=== PATIENT | male | born 1950 | race Caucasian/White ===

== ENCOUNTER 2019-05-16 14:54 | Inpatient (IN) | payer MEDICARE, SELFPAY ==
[2019-05-16] VITALS (12 sets, daily range): BP systolic 98–112; BP diastolic 45–65; PULSE 66–84; RESP 18–35; TEMP 36.7; O2SAT 76–98; BMI 23.8
--- NOTE | 2019-05-16 14:58 | XRR_ITS ---
PROCEDURE INFORMATION: Exam: XR Chest, 1 View Exam date and time: 05/16/2019 3:25 PM Age: 68 years old Clinical indication: Shortness of breath; Chest pain; Prior surgery; Surgery type: Open heart x4; Additional info: Chest pain, SOB TECHNIQUE: Imaging protocol: XR of the chest Views: 1 view. COMPARISON: No relevant prior studies available. FINDINGS: Lungs: There is diffuse parenchymal densities seen in the right lower lobe consistent with alveolar pneumonia Pleural space: Left lower lobe pleural effusion. No pneumothorax. Heart/Mediastinum: Unremarkable. No cardiomegaly. Bones/joints: Sternotomy wires are in place. Cardiac pacemaker is present in the left chest. XR/XR chest 1V portable [id number] IMPRESSION: 1. Right lower lobe parenchymal density consistent with pneumonia 2. Left lower lobe pleural effusion 3. Sternotomy wires are in place. 4. Cardiac pacemaker in place left side
--- NOTE | 2019-05-16 15:04 | ED_ITS ---
Entered by Ron Jose, acting as scribe for Renny Ruiz DO HPI - SOB/Dyspnea General: Chief Complaint: Shortness of Breath/Dyspnea Stated Complaint: oxygen is low, heart pt Time Seen by Provider: 05/16/19 15:01 History of Present Illness: HPI Narrative: 68 yo male presents with shortness of breath. Pt has low o2 saturations and chest pain. pt states that he has been sick for 3 days. Pt has had diarrhea and vomiting for 3 days. Pt hasn't been able to keep his medications down. MD elicited complaint: shortness of breath Onset (ago): day(s) (3) Timing: constant Severity: moderate Exacerbating factors: lying flat and movement Relieving factors: oxygen Associated symptoms: Reports chest pain, cough, nausea, orthopnea and vomiting; Deny dizziness, extremity pain, fever(s), polydipsia or polyuria Treatment prior to arrival: none Review of Systems Const: Denies: fever, chills, body aches, fatigue, malaise or night sweats Eyes: Denies: change in vision or blurry vision ENMT: Denies: throat pain, oral sores/lesions, dental pain, nasal discharge or nasal congestion Card: Reports: chest pain, shortness of breath on exertion and shortness of breath when lying down Resp: Reports: shortness of breath GI: Reports: nausea, vomiting and diarrhea : Denies: flank pain, difficulty urinating, painful urination or urinary frequency Musc: Denies: neck pain, back pain, extremity pain or extremity swelling Skin/Breast: Denies: rash, itching, redness or sensitivity to light Neuro: Denies: headache, numbness in extremities, weakness in extremities, changes in sensation, lack of coordination, difficulty walking, frequent falls, dizziness, vertigo or confusion Psych: Denies: anxiety, depression, loss of interest, visual hallucinations, auditory hallucinations, suicidal ideation or homicidal ideation Endo: Denies: excessive urination, excessive thirst, tired all the time or cold intolerance Vivek/Lymph: Denies: easy bruising, easy bleeding, petechiae, enlarged lymph nodes or tender lymph nodes PFSH ED PFSH: Statuses (acute, chronic, etc) shown below reflect problem list status as previously entered and may not be historically accurate Medical History Amputation above knee (Acute) Hypertension (Acute) Pacemaker (Acute) Peripheral vascular disease (Acute) Surgical History Hx of CABG (Acute) Hx of CABG (Acute) S/P femoral-popliteal bypass surgery (Acute) Social History Smoking and tobacco status: current every day smoker Physical Exam Const: COMMON NORMALS: average body habitus and oriented x3 GENERAL APPEARANCE: cooperative, comfortable, well kempt and well developed NUTRITIONAL APPEARANCE: obese ORIENTATION/CONSCIOUSNESS: Yes awake, Yes oriented to person and Yes oriented to place HENMT: COMMON NORMALS: normocephalic, head/scalp atraumatic, EAC's normal, TM's normal bilaterally, external nose normal, moist oral mucous membranes and oropharynx normal HEAD & SCALP: normocephalic and atraumatic NOSE: external nose normal EXTERNAL AUDITORY CANAL: EAC's normal TYMPANIC MEMBRANE: TM's normal bilaterally MOUTH: oral and palatal mucosa normal, lip normal and tongue normal THROAT: posterior oropharynx normal and tonsils normal Eye: COMMON NORMALS: PERRL, EOMs intact bilaterally, conjunctivae normal and no scleral icterus CONJUNCTIVA: Yes conjunctivae normal PUPIL: Yes PERRL Neck/C-Spine: COMMON NORMALS: full ROM, no lymphadenopathy, supple, no meningeal signs and thyroid normal THYROID: thyroid normal and asymmetrical Lymph: LYMPHATIC: no lymphadenopathy noted Resp: COMMON NORMALS: no use of accessory muscles EFFORT & INSPECTION: Yes tachypneic AUSCULTATION: rhonchi and wheezes Cardio: COMMON NORMALS: regular rate and regular rhythm RATE: regular rate RHYTHM: regular rhythm HEART SOUNDS: no murmurs GI: COMMON NORMALS: normal to inspection, nondistended, normoactive bowel sounds, soft to palpation and no hepatosplenomegaly PALPATION: Yes soft and Yes no hepatosplenomegaly : COMMON NORMALS: Yes no CVA tenderness BLADDER/KIDNEY EXAM: Yes no CVA tenderness Back/Pelvis: COMMON NORMALS: no CVA tenderness LUMBAR SPINE/LOWER BACK: Yes normal to inspection Extremity: COMMON NORMALS: no clubbing, cyanosis or edema, no calf tenderness and no pedal edema GENERAL: Yes amputation (right above knee amputation) Neuro: COMMON NORMALS: oriented x3 SENSORIUM/ORIENTATION: Yes oriented to person and Yes oriented to place MENINGEAL SIGNS: Yes no meningeal signs Psych: APPEARANCE: Yes well kempt Skin: COMMON NORMALS: no rashes or lesions noted and skin turgor normal GENERAL SKIN EXAM: no rashes or lesions noted and turgor normal Course Vital Signs: Vital signs: Vital Signs Temperature 98.2 F 05/17/19 02:00 Pulse Rate 76 05/17/19 09:00 Respiratory Rate 29 H 05/17/19 09:00 Blood Pressure 125/60 05/17/19 09:00 Pulse Oximetry 91 05/17/19 09:00 MDM - SOB/Dyspnea Lab Data: Labs: Lab Results 05/16/19 05/16/19 05/16/19 Range/Units 15:26 15:26 15:26 WBC 23.3 H (4.0-10.0) 10^3/ uL RBC 4.09 L (4.1-5.3) 10^6/u L Hgb 11.2 L (11.7-16.6) g/dL Hct 34.8 L (42.0-52.0) % MCV 85.1 (80-94) fL MCH 27.4 L (28.0-34.0) pg MCHC 32.2 (30.0-36.0) g/dL RDW 15.0 (12.1-15.1) % Plt Count 341 (130-400) 10^3/c mm MPV 9.5 (7.4-10.4) fL Neut % (Auto) 93.8 % Lymph % (Auto) 1.7 % [place] % (Auto) 3.7 % Eos % (Auto) 0.0 % Baso % (Auto) 0.1 % Neut # (Auto) 21.8 H (1.8-7.7) 10^3/u L Lymph # (Auto) 0.4 L (0.8-4.8) 10^3/u L [place] # (Auto) 0.9 (0.2-0.9) 10^3/u L Eos # (Auto) 0.0 (0.0-0.8) 10^3/u L Baso # (Auto) 0.0 (0.0-0.1) 10^3/u L Nucleated RBC % (a uto) 0 % Nucleated RBCs # 0.0 /100WBC Specimen Type Sample Site ABG pH (7.35-7.45) ABG pCO2 (35-45) mmHg ABG pO2 (80.0-100.0) mmH g ABG HCO3 (22-26) mmol/L ABG O2 Saturation ABG Base Excess (-2.0-2.0) mmol/ L Manish Test A-a O2 Gradient (5-10) mmHg Hematocrit (42-52) % Hgb O2 Saturation (95-100) % Carboxyhemoglobin (0.4-20.1) %THgb Methemoglobin (0.4-1.5) % Total Hemoglobin (14-18) g/dL Ionized Calcium (1.1-1.4) mmol/L O2 Delivery Device O2 Liters/Min % Commercial Carpenter ID Sodium 135 L (136-145) mmol/L Potassium 4.3 (3.5-5.1) mmol/L Chloride 98 (98-107) mmol/L Carbon Dioxide 20 L (22-29) mmol/L Anion Gap 21.3 H (5-19) BUN 21 (8-23) mg/dL Creatinine 0.9 (0.7-1.2) mg/dL GFR Calculation 83.9 L (90-130) mL/min Glucose 111 H (74-106) mg/dL Lactic Acid (0.5-2.2) mmol/L Calcium 9.6 (8.5-10.5) mg/dL Total Bilirubin 0.8 (0.15-1.2) mg/dL AST 70 H (0-40) U/L ALT 64 H (0-41) U/L Alkaline Phosphata se 129 (40-130) IU/L Troponin T Baselin e 103 H* (0-15) ng/mL Troponin T 120 Min deann (0-15) ng/mL Delta Troponin T (0-10) ABS# NT-Pro-B Natriuret Pep (0-125) pg/mL Total Protein 7.2 (6.6-8.7) g/dL Albumin 3.2 L (3.5-5.2) g/dL Globulin 4.0 (1.3-4.6) g/dL HIV 1&2 Ab & HIV 1 Ag (Non-Reactiv) HIV 1&2 Antibody (Non-Reactiv) 05/16/19 05/16/19 05/16/19 Range/Units 15:26 15:26 16:29 WBC (4.0-10.0) 10^3/ uL RBC (4.1-5.3) 10^6/u L Hgb (11.7-16.6) g/dL Hct (42.0-52.0) % MCV (80-94) fL MCH (28.0-34.0) pg MCHC (30.0-36.0) g/dL RDW (12.1-15.1) % Plt Count (130-400) 10^3/c mm MPV (7.4-10.4) fL Neut % (Auto) % Lymph % (Auto) % [place] % (Auto) % Eos % (Auto) % Baso % (Auto) % Neut # (Auto) (1.8-7.7) 10^3/u L Lymph # (Auto) (0.8-4.8) 10^3/u L [place] # (Auto) (0.2-0.9) 10^3/u L Eos # (Auto) (0.0-0.8) 10^3/u L Baso # (Auto) (0.0-0.1) 10^3/u L Nucleated RBC % (a uto) % Nucleated RBCs # /100WBC Specimen Type Sample Site ABG pH (7.35-7.45) ABG pCO2 (35-45) mmHg ABG pO2 (80.0-100.0) mmH g ABG HCO3 (22-26) mmol/L ABG O2 Saturation ABG Base Excess (-2.0-2.0) mmol/ L Manish Test A-a O2 Gradient (5-10) mmHg Hematocrit (42-52) % Hgb O2 Saturation (95-100) % Carboxyhemoglobin (0.4-20.1) %THgb Methemoglobin (0.4-1.5) % Total Hemoglobin (14-18) g/dL Ionized Calcium (1.1-1.4) mmol/L O2 Delivery Device O2 Liters/Min % Commercial Carpenter ID Sodium (136-145) mmol/L Potassium (3.5-5.1) mmol/L Chloride (98-107) mmol/L Carbon Dioxide (22-29) mmol/L Anion Gap (5-19) BUN (8-23) mg/dL Creatinine (0.7-1.2) mg/dL GFR Calculation (90-130) mL/min Glucose (74-106) mg/dL Lactic Acid 2.1 (0.5-2.2) mmol/L Calcium (8.5-10.5) mg/dL Total Bilirubin (0.15-1.2) mg/dL AST (0-40) U/L ALT (0-41) U/L Alkaline Phosphata se (40-130) IU/L Troponin T Baselin e (0-15) ng/mL Troponin T 120 Min deann (0-15) ng/mL Delta Troponin T (0-10) ABS# NT-Pro-B Natriuret Pep 4930 H (0-125) pg/mL Total Protein (6.6-8.7) g/dL Albumin (3.5-5.2) g/dL Globulin (1.3-4.6) g/dL HIV 1&2 Ab & HIV 1 Ag Non-reactive (Non-Reactiv) HIV 1&2 Antibody Non-reactive (Non-Reactiv) 05/16/19 05/16/19 Range/Units 17:33 17:45 WBC (4.0-10.0) 10^3/ uL RBC (4.1-5.3) 10^6/u L Hgb (11.7-16.6) g/dL Hct (42.0-52.0) % MCV (80-94) fL MCH (28.0-34.0) pg MCHC (30.0-36.0) g/dL RDW (12.1-15.1) % Plt Count (130-400) 10^3/c mm MPV (7.4-10.4) fL Neut % (Auto) % Lymph % (Auto) % [place] % (Auto) % Eos % (Auto) % Baso % (Auto) % Neut # (Auto) (1.8-7.7) 10^3/u L Lymph # (Auto) (0.8-4.8) 10^3/u L [place] # (Auto) (0.2-0.9) 10^3/u L Eos # (Auto) (0.0-0.8) 10^3/u L Baso # (Auto) (0.0-0.1) 10^3/u L Nucleated RBC % (a uto) % Nucleated RBCs # /100WBC Specimen Type Arterial Sample Site Brachial, right ABG pH 7.45 (7.35-7.45) ABG pCO2 34.7 L (35-45) mmHg ABG pO2 53.4 L (80.0-100.0) mmH g ABG HCO3 24.3 (22-26) mmol/L ABG O2 Saturation 85.7 ABG Base Excess 0.7 (-2.0-2.0) mmol/ L Manish Test Pos A-a O2 Gradient 51.5 H (5-10) mmHg Hematocrit 33.8 L (42-52) % Hgb O2 Saturation 84.4 L (95-100) % Carboxyhemoglobin 1.3 (0.4-20.1) %THgb Methemoglobin 0.2 L (0.4-1.5) % Total Hemoglobin 11.0 L (14-18) g/dL Ionized Calcium 1.2 (1.1-1.4) mmol/L O2 Delivery Device Nrb O2 Liters/Min 10.0 % Commercial Carpenter ID bd Sodium 134.0 (136-145) mmol/L Potassium 3.8 (3.5-5.1) mmol/L Chloride (98-107) mmol/L Carbon Dioxide (22-29) mmol/L Anion Gap (5-19) BUN (8-23) mg/dL Creatinine (0.7-1.2) mg/dL GFR Calculation (90-130) mL/min Glucose 99.0 (74-106) mg/dL Lactic Acid (0.5-2.2) mmol/L Calcium (8.5-10.5) mg/dL Total Bilirubin (0.15-1.2) mg/dL AST (0-40) U/L ALT (0-41) U/L Alkaline Phosphata se (40-130) IU/L Troponin T Baselin e (0-15) ng/mL Troponin T 120 Min deann 119.60 H (0-15) ng/mL Delta Troponin T 16.60 H* (0-10) ABS# NT-Pro-B Natriuret Pep (0-125) pg/mL Total Protein (6.6-8.7) g/dL Albumin (3.5-5.2) g/dL Globulin (1.3-4.6) g/dL HIV 1&2 Ab & HIV 1 Ag (Non-Reactiv) HIV 1&2 Antibody (Non-Reactiv) Discharge Plan Discharge Patient Disposition: Admitted As Inpatient Admit Provider: Sury Dorsey Clinical Impression: Right lower lobe pneumonia, CAD (coronary artery disease), Hypertension, Peripheral vascular disease, Sepsis Condition: Stable Interventions: ED Discharge Assessment Last Done: 05/16/19 23:27 Discharge Date/Time: 05/16/19 23:28 Coding Level of Care Code ED Geriatric Nurse for Chg Fwd Exam Problem Focused The documentation recorded by the Dmaon estrada Kialy, accurately reflects the service I personally performed and the decisions made by Joseph barragan Curtis L, May 16, 2019 14:54
--- NOTE | 2019-05-16 15:16 | ECG_ITS ---
Measurements Intervals [place] Rate: 72 P: 54 VT: 159 QRS: 55 QRSD: 145 T: -86 QT: 429 QTc: 470 SINUS RHYTHM POSSIBLE LEFT ATRIAL ENLARGEMENT [-0.1mV P WAVE IN V1/V2] INTRAVENTRICULAR CONDUCTION DELAY [130+ ms QRS DURATION] LATERAL MYOCARDIAL INFARCTION , OF INDETERMINATE AGE [40+ ms Q WAVE AND/OR ST/T ABNORMALITY IN I/aVL/V5/V6] PROBABLE INFERIOR MYOCARDIAL INFARCTION , OF INDETERMINATE AGE [35 ms Q WAVE IN II/aVF] INTERPRETATION BASED ON A DEFAULT AGE OF 40 YEARS No previous ECG available for comparison Electronically Signed On 05-17-2019 18:01:44 SALES REPRESENTATIVE RAW [employer]IBERS by Alicia Hutchison M.D. [email or web address]
[2019-05-16 15:33] LABS: Basophils % 0.1 %; Hematocrit 34.8 % (42.0-52.0); Hemoglobin 11.2 g/dL (11.7-16.6); Lymphocytes # 0.4 10^3/uL (0.8-4.8); Lymphocytes % 1.7 %; Mean Corpuscular HGB Conc 32.2 g/dL (30.0-36.0); Mean Corpuscular Hemoglobin 27.4 pg (28.0-34.0); Mean Corpuscular Volume 85.1 fL (80-94); Mean Platelet Volume 9.5 fL (7.4-10.4); Monocytes # 0.9 10^3/uL (0.2-0.9); Monocytes % 3.7 %; Neutrophils # 21.8 10^3/uL (1.8-7.7); Neutrophils % 93.8 %; Nucleated Red Blood Cells % 0 %; Platelet Count 341 10^3/cmm (130-400); Red Blood Count 4.09 10^6/uL (4.1-5.3); White Blood Count 23.3 10^3/uL (4.0-10.0)
[2019-05-16] MEDS: FUROsemide 10 mg/mL SDV 4mL 40 MG IVP (15:34)
[2019-05-16 15:48] LABS: Alanine Aminotransferase 64 U/L (0-41); Albumin Level 3.2 g/dL (3.5-5.2); Alkaline Phosphatase 129 IU/L (40-130); Anion Gap 21.3 (5-19); Aspartate Amino Transferase 70 U/L (0-40); Blood Urea Nitrogen 21 mg/dL (8-23); Calcium 9.6 mg/dL (8.5-10.5); Carbon Dioxide 20 mmol/L (22-29); Chloride 98 mmol/L (98-107); Glomerular Filtration Rate 83.9 mL/min (90-130); Glucose 111 mg/dL (74-106); Potassium 4.3 mmol/L (3.5-5.1); Sodium 135 mmol/L (136-145); Total Bilirubin 0.8 mg/dL (0.15-1.2); Total Protein 7.2 g/dL (6.6-8.7)
[2019-05-16 15:54] LABS: Troponin(5th) Baseline 103 ng/mL (0-15)
[2019-05-16] MEDS: levofloxacin-dextrose 5 % 750 MG/150 ML PREMIX 150 MG IV (16:06)
[2019-05-16 16:44] LABS: NT Pro B Type Natriuretic Pept 4930 pg/mL (0-125)
--- NOTE | 2019-05-16 17:16 | ECG_ITS ---
Measurements Intervals [place] Rate: 65 P: 38 MN: 151 QRS: 48 QRSD: 146 T: 137 QT: 455 QTc: 476 SINUS RHYTHM POSSIBLE LEFT ATRIAL ENLARGEMENT [-0.1mV P WAVE IN V1/V2] INTRAVENTRICULAR CONDUCTION DELAY [130+ ms QRS DURATION] LATERAL MYOCARDIAL INFARCTION , OF INDETERMINATE AGE [40+ ms Q WAVE AND/OR ST/T ABNORMALITY IN I/aVL/V5/V6] INFERIOR MYOCARDIAL INFARCTION , PROBABLY OLD [40+ ms Q WAVE AND/OR ST/T ABNORMALITY IN II/aVF] No previous ECG available for comparison Electronically Signed On 05-17-2019 18:02:43 CORPORATE DIRECTOR TALENT ASSESSMENT by Alicia Hutchison M.D. [email or web address]
[2019-05-16 17:56] LABS: ABG PCO2 34.7 mmHg (35-45); ABG PH Result 7.45 (7.35-7.45); Alveolar-Arterial Oxygen Gradi 51.5 mmHg (5-10); Arterial Blood Gas Hematocrit 33.8 % (42-52); Base Excess ABG 0.7 mmol/L (-2.0-2.0); Blood Gas Allen Test Pos; Blood Gas Sample Site Brachial, right; Blood Gas Sample Type Arterial; Carboxyhemoglobin 1.3 %THgb (0.4-20.1); HCO3 ABG 24.3 mmol/L (22-26); HGB O2 Sat 84.4 % (95-100); Ionized Calcium Level - ABG 1.2 mmol/L (1.1-1.4); Methemoglobin 0.2 % (0.4-1.5); Oxygen Device NRB; Oxygen Saturation ABG 85.7; PO2 ABG 53.4 mmHg (80.0-100.0); Potassium Level - ABG 3.8 mmol/L (3.5-5.0)
--- NOTE | 2019-05-16 18:42 | USCV_ITS ---
Kristian Valencia Age: 68 Gender: M : 1950 Exam Date: 05/16/2019 20:11 Ordering Phys: Sury Dorsey MD Technologist: [place] [facility] [place]: [place] BP: / HR: 70 Rhythm: Sinus Technical Quality: Adequate MEASUREMENTS (Male / Female) Normal Values 2D ECHO LV Diastolic Diameter PLAX 6.1 cm 4.2 - 5.9 / 3.9 - 5.3 cm LV Systolic Diameter PLAX 5.6 cm LV Chamber Size 5.9 cm IVS Diastolic Thickness 1.9 cm 0.6 - 1.0 / 0.6 - 0.9 cm IVS Systolic Thickness 1.6 cm LVPW Diastolic Thickness 1.8 cm 0.6 - 1.0 / 0.6 - 0.9 cm LVPW Systolic Thickness 1.3 cm RV Chamber Size 2.3 cm LVOT Diameter 2.0 cm LV Ejection Fraction 2D Teich 17.5 % LV Ejection Fraction MOD 2C 40.9 % LV Ejection Fraction 2C AL 39.4 % LA Diameter 4.8 cm LA Width 4.2 cm LA Height 5.6 cm RA Width 3.8 cm RA Height 4.6 cm Aorta at Sinotubular Diameter 3.3 cm M-MODE LV Diastolic Diameter MM 7.4 cm 4.2 - 5.9 / 3.9 - 5.3 cm LV Systolic Diameter MM 5.4 cm LV Ejection Fraction MM Teich 51.0 % IVS Diastolic Thickness MM 1.2 cm 0.6 - 1.0 / 0.6 - 0.9 cm IVS Systolic Thickness MM 2.0 cm LVPW Diastolic Thickness MM 1.2 cm 0.6 - 1.0 / 0.6 - 0.9 cm LVPW Systolic Thickness MM 1.3 cm RV Diastolic Diameter MM 1.8 cm Aortic Annulus Diameter 3.3 cm LA Ao Ratio MM 1.5 MV E Point Septal Separation 2.1 cm DOPPLER AV Peak Velocity 202.0 cm/s LVOT Peak Velocity 99.0 cm/s AV Area Cont Eq vti 1.7 cm squared AV Area Cont Eq pk 1.5 cm squared MV Area PHT 3.2 cm squared Mitral E to A Ratio 1.5 MV E' Velocity 7.0 cm/s Mitral E to MV E' Ratio 11.1 Mitral E to LV E' Lateral Ratio 11.7 Mitral E to LV E' Septal Ratio 10.7 TR Peak Velocity 242.3 cm/s TR Peak Gradient 23.5 mmHg TR Mean Velocity 162.4 cm/s TR Mean Gradient 12.7 mmHg TR Velocity Time Integral 62.9 cm TV Peak E Velocity 59.0 cm/s Right Atrial Pressure 3.0 mmHg Pulmonary Artery Systolic Pressu 26.5 mmHg PV Peak Velocity 95.0 cm/s RV Acceleration Time 0.1 s RV Ejection Time 0.4 s RV AcT/ET 0.3 FINDINGS Left Ventricle Severely increased left ventricular cavity size. Severely decreased left ventricular systolic function. Left ventricular ejection fraction is estimated at 35 %. It appeared to be severe anterior, septal hypokinesis.Grade II/IV diastolic dysfunction, moderately elevated filling pressures. Right Ventricle Normal right ventricular size. Catheter/pacemaker wire visualized in the right ventricle. Right Atrium Normal right atrial size. Catheter/pacemaker wire in the right atrial cavity. Left Atrium Moderately increased left atrial size. Mitral Valve Moderately thickened mitral valve. No mitral valve stenosis. Moderate mitral valve regurgitation. Aortic Valve Moderate aortic valve calcification. No aortic valve stenosis. Mild aortic valve regurgitation. Tricuspid Valve Thickened tricuspid valve. [id number] tricuspid valve regurgitation. Pulmonic Valve Structurally normal pulmonic valve without significant stenosis. There is no pulmonic regurgitation. Pericardium Normal pericardium without effusion. Aorta Normal ascending aorta dimension. CONCLUSIONS 1-Severely increased left ventricular cavity size. Severely decreased left ventricular systolic function. Left ventricular ejection fraction is estimated at 35 %. It appeared to be severe anterior, septal hypokinesis.Grade II/IV diastolic dysfunction, moderately elevated filling pressures. 2-Normal right ventricular size. Catheter/pacemaker wire visualized in the right ventricle. 3-Moderately increased left atrial size. 4-Moderately thickened mitral valve. No mitral valve stenosis. Moderate mitral valve regurgitation. 5-Moderate aortic valve calcification. No aortic valve stenosis. Mild aortic valve regurgitation. 6-Thickened tricuspid valve. [id number] tricuspid valve regurgitation. 7-There is no pericardial effusion. 8-Pulmonary artery systolic pressure is within normal limits. 9-Right atrial pressure is around 5 mm of mercury. 10-There are no prior echocardiogram studies to compare. Alicia Hutchison MD (Electronically Signed) Final Date: 17 May 2019 13:39 S
--- NOTE | 2019-05-16 18:42 | CTR_ITS ---
PROCEDURE INFORMATION: Exam: CT Angiography Chest With Contrast Exam date and time: 05/16/2019 6:52 PM Age: 68 years old Clinical indication: Dyspnea; Prior surgery; Surgery type: Bypass, defib; Additional info: R/O pe TECHNIQUE: Imaging protocol: Computed tomographic angiography of the chest with intravenous contrast. 3D rendering: MIP and/or 3D reconstructed images were created by the technologist. Total DLP: 681.9 mGy-cm Radiation optimization: All CT scans at this facility use at least one of these dose optimization techniques: automated exposure control; mA and/or kV adjustment per patient size (includes targeted exams where dose is matched to clinical indication); or iterative reconstruction. Contrast material: OMNI 350; Contrast volume: 95 ml; Contrast route: IV; COMPARISON: CR XR chest 1V portable [id number] 05/16/2019 3:11 PM FINDINGS: Tubes, catheters and devices: A pacemaker device is present, and its leads are in appropriate position. Pulmonary arteries: Normal. No pulmonary emboli. Aorta: Unremarkable. No aortic aneurysm. No aortic dissection. Lungs: There is patchy bilateral airspace density, which may represent pneumonia, pulmonary edema, or inflammatory pneumonitis such as ARDS. There is subpleural atelectasis of the dependent portions of the lungs. Pleural space: There is a small right pleural effusion and a moderate size left pleural effusion. Heart: Sternotomy wires and mediastinal surgical clips are present, consistent with previous coronary arterial bypass grafting. Gallbladder and bile ducts: There is either radiodense tiny stones or sludge in the gallbladder versus vicarious excretion of contrast. Lymph nodes: Unremarkable. No enlarged lymph nodes. Bones/joints: There is severe degenerative changes at the right sternoclavicular joint. There is a right sternoclavicular joint effusion with a punctate focus of gas within the fluid image 122. No bony destruction or osteomyelitis. Soft tissues: Unremarkable. Other findings: No duct dilatation. CT/CT angio chest PE protcl [id number] IMPRESSION: 1. There is no pulmonary embolus. 2. Bilateral pleural effusions left greater than right. 3. There is patchy bilateral airspace density, which may represent pneumonia, pulmonary edema, or inflammatory pneumonitis such as ARDS. 4. Marked degenerative changes of the right sternoclavicular joint with a large joint effusion and a small amount of gas within the fluid. A secondarily infected sternoclavicular joint cannot be excluded. Radiation Dose CTDIVOL = (mGy): DLP = 681.9 (mGy-cm)
[2019-05-16] MEDS: piperacillin-tazobactam 3.375 GM in sodium chloride 0.9% (plus) 50 ML IV ×2 (18:53→23:11)
--- NOTE | 2019-05-16 18:53 | P.HP_ITS ---
Providers/Chief Complaint Admitting Physician: Sury Dorsey MD Primary Care Provider: Erik Pickering APN Chief Complaint: oxygen is low, heart pt History of Present Illness Kristian Valencia is a 68 year old male with PMH notable for CAD s/p CABG in 1980s, severe peripheral vascular disease requiring R leg amputation after several failed bypass attempts (Jan 2019) and procedures to the remaining left leg in the past. He is on Amiodarone, however does not know reason. He belives he may have been on anticoagulation at some point but does not recall which agent. States that several of his regular medications were discontinued due to incorrectly reported allergies when [place] went [place] procedure in Jan 2019. He presents now with c/o feeling unwell over past 3 days. Illness started with diarrhea and multiple episodes of vomiting 3 days ago. He has missed medications over past 3 days for this reason. Also started experiencing mid sternal to RUQ intermittent pain 7/10 intensity with no apparent exacerbating or relieving factors. He also describes shortness of breath associated with above, now being unable to ambulate even within the house. productive cough+. His siter at bedside reports he may have fallen 2 days ago, but does not recall details of the same. No h/o aspiration He went to [facility] today where he was noted to be hypoxic with 02 sat in 70s and was sent here. Upon presentation, 02 sat was 74% on RA. Now improved to 92% on NRB at 10lpm. Other w/up notable for RLL pneumonia, WBC count 23, significantly elevated troponin >100 with 2 hr delta of 16, BNP 4900, mild transaminitis. He is still c/o intermittent chest pain. ROS+ also for chills, has not checked temperature. Thus far received iv zosyn, levaquin and lasix 40mg in ER. Review of Systems General: Reports: 10 or more systems reviewed and unremarkable except in HPI and below Const: Reports: chills and fatigue; Denies: fever or body aches Eyes: Denies: change in vision or blurry vision ENMT: Denies: throat pain, painful swallowing, hoarseness, swelling of lips/tongue or oral sores/lesions Card: Reports: chest pain, shortness of breath on exertion and shortness of breath when lying down; Denies: palpitations, irregular heart rhythm, edema, swelling of feet/ankles, lightheadedness, syncope or pre-syncope Resp: Reports: shortness of breath and productive cough; Denies: wheezing, stridor or pain on inspiration GI: Denies: abdominal pain, nausea, vomiting, constipation or bloating : Denies: urinary frequency, urinary urgency, urinary hesitancy or urinary dribbling Musc: Denies: joint pain, joint swelling or redness Neuro: Denies: headache, changes in sensation or lack of coordination Psych: Denies: anxiety or depression Endo: Denies: excessive urination, excessive thirst or tired all the time Vivek/Lymph: Denies: easy bruising, easy bleeding or petechiae Medications/Allergies Home Medications Medication Instructions Recorded Confirmed Last Taken Type amiodarone 200 mg PO BID 05/16/19 05/16/19 05/15/19 History clopidogrel [Plavix] 75 mg PO DAILY 05/16/19 05/16/19 05/15/19 History multivitamin,ka-qbzv-juzadgkp 1 tab PO DAILY 05/16/19 05/16/19 05/15/19 History [Complete Multivitamin] quetiapine [Seroquel] 25 mg PO QPM 05/16/19 05/16/19 05/15/19 History sertraline 50 mg PO DAILY 05/16/19 05/16/19 05/15/19 History simvastatin 10 mg PO QPM 05/16/19 05/16/19 05/14/19 History Allergies Allergy/AdvReac Type Severity Reaction Status Date / Time No Known Allergies Allergy Verified 05/16/19 15:10 PFSH Acute PFSH: Statuses (acute, chronic, etc) shown below reflect problem list status as previously entered and may not be historically accurate Medical History (Updated 05/16/19 @ 19:27 by Sury Dorsey MD) Amputation above knee (Acute) Hypertension (Acute) Pacemaker (Acute) Peripheral vascular disease (Acute) Surgical History (Updated 05/16/19 @ 19:11 by Sury Dorsey MD) Hx of CABG (Acute) Hx of CABG (Acute) S/P femoral-popliteal bypass surgery (Acute) Social History Smoking and tobacco status: current every day smoker Vitals/I&O/Wt Last Vital Signs Temp 98.0 F 05/16/19 15:04 Pulse 84 05/16/19 15:04 Resp 20 H 05/16/19 15:04 BP 112/65 05/16/19 15:04 Pulse Ox 76 L 05/16/19 15:04 Weight last 48 hrs Weight 67.132 kg Physical Exam Narrative: EXAM NARRATIVE: GEN: Awake, alert and oriented, sitting in bed HEENT: PERRLA, NRB in place CVS: S1S2 N, no MRG RS: L side crackles posteriorly, Reduced air entry R lung base Abd: Soft, nt/nd , bs+ TIRE SPOTTER: no focal neuro deficits at this time EXT: RLE AKA, Left leg without edema, cyanosis. 2+ peripheral pulses. Data : 05/16/19 15:26 05/16/19 15:26 Micro: Microbiology 05/16/19 16:29 Blood Culture - Preliminary Blood SPECIMEN COLLECTED 05/16/19 16:29 Blood Culture - Preliminary Blood SPECIMEN COLLECTED A&P Assessment and plan (1) Right lower lobe pneumonia: Status: Acute Code(s): J18.9 - Pneumonia, unspecified organism (2) NSTEMI (non-ST elevated myocardial infarction): Status: Acute Code(s): I21.4 - Non-ST elevation (NSTEMI) myocardial infarction (3) CAD (coronary artery disease): Status: Acute Code(s): I25.10 - Atherosclerotic heart disease of [place] coronary artery without angina pectoris (4) Hypertension: Status: Acute Code(s): I10 - Essential (primary) hypertension (5) Sepsis: Status: Acute Code(s): A41.9 - Sepsis, unspecified organism Additional A&P Information Admit to ICU For RLL pneumonia: Start treatment with Ceftriaxone 1g iv q24h, Continue levofloxacin for atypical coverage. Influenza swab, sputum gram stain and culture, MRSA nasal PCR screen Duonebs inhalation, supplemental 02 titrated to keep 02 sat >92% Bipap if needed blood culture, check lactate NSTEMI: Given elevated troponin with significant 2 hr delta, significant PMH of CAD and vasculopathy, ACS ruled in. Unclear chronicity of EKG changes. ASA 325 mg now. Continue Plavix. Start Lipitor 40mg qd. Hba1c, lipid panel in am. Start Lovenox 1mg/kg q12h Echocardiogram to estimate EF, look for RWMAs CTA chest to r/o PE Elevated BNP, unclear past h/o CHF. No diuretics on home medication list. Echocardiogram as above. Currently euvolemic, hold off on further diuresis for now. Recievd 40mg iv lasix in ED. Patient has PPM in place. continue amiodarone will reach out to outpatient lithograph press operator [employer] in am to obtain old records Code status: full code DVT ppx: lovenox Attestations Medical Necessity Statement*: management of sepsis due to RLL pneumonia, NSTEMI Coding Level of Care Code Acute Vp Customer Service for g Fwd Diagnoses Right lower lobe pneumonia J18.9 NSTEMI (non-ST elevated myocardial infarction) I21.4 CAD (coronary artery disease) I25.10 Hypertension I10 Sepsis A41.9
--- NOTE | 2019-05-16 19:00 | ECG_ITS ---
Measurements Intervals [place] Rate: 68 P: 54 HI: 188 QRS: 52 QRSD: 146 T: 133 QT: 452 QTc: 483 SINUS RHYTHM POSSIBLE LEFT ATRIAL ENLARGEMENT [-0.1mV P WAVE IN V1/V2] INTRAVENTRICULAR CONDUCTION DELAY [130+ ms QRS DURATION] PROBABLE LATERAL MYOCARDIAL INFARCTION , OF INDETERMINATE AGE [35 ms Q WAVE IN I/a I/aVL/V5/V6] PROBABLE INFERIOR MYOCARDIAL INFARCTION , PROBABLY OLD [35 ms Q WAVE IN II/aVF] No previous ECG available for comparison Electronically Signed On 05-17-2019 18:02:46 EXHAUST AND MUFFLER REPAIRER by Alicia Hutchison M.D. [id number]
[2019-05-16 19:07] LABS: Lactic Sepsis W/Reflex 2.1 mmol/L (0.5-2.2)
[2019-05-16] MEDS: iohexol 350 mg/mL 100 mL Btl 95 ML IV (19:37)
[2019-05-16 20:39] LABS: Reflex Lactate Order REFLEX LACTIC ORDERD
--- NOTE | 2019-05-16 21:16 | ECG_ITS ---
Measurements Intervals [place] Rate: 69 P: 2 SD: 155 QRS: 10 QRSD: 150 T: 189 QT: 465 QTc: 498 SINUS RHYTHM LEFT ATRIAL ENLARGEMENT [-0.15mV P WAVE IN V1/V2] INTRAVENTRICULAR CONDUCTION DELAY [130+ ms QRS DURATION] LATERAL MYOCARDIAL INFARCTION , OF INDETERMINATE AGE [40+ ms Q WAVE AND/OR ST/T ABNORMALITY IN I/aVL/V5/V6] No previous ECG available for comparison Electronically Signed On 05-17-2019 18:02:30 MECHANICAL ENGINEERING LECTURER by Alicia Hutchison M.D. [id number]
[2019-05-16 21:40] LABS: Troponin 5 6HR 116.2 ng/L (0-15); Troponin 5 6HR Delta 13.2 ng/L (0-12)
[2019-05-16] MEDS: enoxaparin 80 mg/0.8 mL Syringe 70 MG SUBCUT (21:42)
[2019-05-16] MEDS: atorvastatin 40 mg Tablet PO (21:43)
[2019-05-16] MEDS: aspirin 325 mg Tablet PO (21:43)
[2019-05-16] MEDS: morphine 4 mg/mL SDV 1 mL 2 MG IVP ×2 (21:44→23:10)
[2019-05-16] MEDS: ondansetron 2 mg/ML SDV 2 mL 4 MG IVP ×2 (21:45→23:00)
[2019-05-16 21:47] LABS: HIV 1 & 2 Antibody Non-Reactive (Non-Reactiv); HIV 1 & 2 Antigen Non-Reactive (Non-Reactiv)
--- NOTE | 2019-05-16 22:00 | ECG_ITS ---
Measurements Intervals [place] Rate: 67 P: 58 MA: 189 QRS: 59 QRSD: 145 T: 180 QT: 438 QTc: 463 SINUS RHYTHM POSSIBLE LEFT ATRIAL ENLARGEMENT [-0.1mV P WAVE IN V1/V2] INTRAVENTRICULAR CONDUCTION DELAY [130+ ms QRS DURATION] LATERAL MYOCARDIAL INFARCTION , OF INDETERMINATE AGE [40+ ms Q WAVE AND/OR ST/T ABNORMALITY IN I/aVL/V5/V6] PROBABLE INFERIOR MYOCARDIAL INFARCTION , PROBABLY OLD [35 ms Q WAVE IN II/aVF] No previous ECG available for comparison Electronically Signed On 05-17-2019 18:02:49 AIR HOIST OPERATOR by Alicia Hutchison M.D. [id number]
[2019-05-16 23:17] LABS: Lactic Acid level (Lactate) 1.3 mmol/L (0.5-2.2)
[2019-05-16] MEDS: enoxaparin 100 mg/mL Syringe 70 MG SUBCUT (23:22)
--- NOTE | 2019-05-16 23:41 | PC.PHAR ---
Vancomycin is dosed at 1250mg IVPB every 24 hours to produce a predicted trough level of 13.06 (population based pharmacokinetic analysis). A trorugh level has been ordered from the lab to be obtained before the third dose to confirm and adjust if needed.
[2019-05-17] VITALS (64 sets, daily range): BP systolic 91–125; BP diastolic 34–65; PULSE 63–78; RESP 14–39; TEMP 36.3–37.5; O2SAT 77–98
[2019-05-17 00:04] LABS: Glucose Point of Care 86 mg/dL (70-110)
--- NOTE | 2019-05-17 01:00 | ECG_ITS ---
Measurements Intervals [place] Rate: 65 P: 62 TN: 192 QRS: 56 QRSD: 142 T: 72 QT: 457 QTc: 475 SINUS RHYTHM POSSIBLE LEFT ATRIAL ENLARGEMENT [-0.1mV P WAVE IN V1/V2] INTRAVENTRICULAR CONDUCTION DELAY [130+ ms QRS DURATION] PROBABLE INFERIOR MYOCARDIAL INFARCTION [35 ms Q WAVE IN II/aVF], PROBABLY OLD No previous ECG available for comparison Electronically Signed On 05-17-2019 18:02:54 BIOLOGICAL SCIENTIST by Alicia Hutchison M.D. [id number]
[2019-05-17] MEDS: ipratropium-albuterol 3 mL Neb INHALATION ×4 (03:34→20:30)
[2019-05-17 05:48] LABS: Influenza A by IFA Negative (Negative); Influenza B by IFA Negative (Negative)
[2019-05-17 05:55] LABS: Basophils % 0.1 %; Eosinophils % 0.1 %; Hematocrit 30.3 % (42.0-52.0); Hemoglobin 9.9 g/dL (11.7-16.6); Lymphocytes # 0.6 10^3/uL (0.8-4.8); Lymphocytes % 2.8 %; Mean Corpuscular HGB Conc 32.7 g/dL (30.0-36.0); Mean Corpuscular Hemoglobin 27.6 pg (28.0-34.0); Mean Corpuscular Volume 84.4 fL (80-94); Mean Platelet Volume 9.5 fL (7.4-10.4); Monocytes # 0.6 10^3/uL (0.2-0.9); Monocytes % 3.1 %; Neutrophils # 18.4 10^3/uL (1.8-7.7); Neutrophils % 93.5 %; Nucleated Red Blood Cells % 0 %; Platelet Count 317 10^3/cmm (130-400); Red Blood Count 3.59 10^6/uL (4.1-5.3); White Blood Count 19.7 10^3/uL (4.0-10.0)
[2019-05-17 06:18] LABS: Anion Gap 16.9 (5-19); Blood Urea Nitrogen 24 mg/dL (8-23); Calcium 9.1 mg/dL (8.5-10.5); Carbon Dioxide 22 mmol/L (22-29); Chloride 101 mmol/L (98-107); Glomerular Filtration Rate 83.9 mL/min (90-130); Glucose 93 mg/dL (74-106); Magnesium 1.9 mg/dL (1.7-2.3); Osmolality Calculated 278 mOsm/kg (285-295); Potassium 3.9 mmol/L (3.5-5.1); Sodium 136 mmol/L (136-145)
[2019-05-17 06:19] LABS: Chol HDL Ratio 4.31 mg/dL (1.0-5.00); Cholesterol 69 mg/dL (0-200); HDL Cholesterol 16 mg/dL (60-100); LDL Cholesterol Calculated 35 mg/dL (50-129); LDL HDL Ratio 2.19 RATIO (0.00-3.22); Lactate Dehydrogenase 381 U/L (135-225); Triglycerides 88 mg/dL (0-150)
[2019-05-17] MEDS: piperacillin-tazobactam 3.375 GM in sodium chloride 0.9% (plus) 50 ML IV ×3 (07:19→21:15)
[2019-05-17 07:55] LABS: Glucose Point of Care 90 mg/dL (70-110)
[2019-05-17] MEDS: levoFLOXacin 750 mg Tablet PO (08:16)
[2019-05-17] MEDS: clopidogrel 75 mg Tablet PO (08:16)
[2019-05-17] MEDS: amiodarone 200 mg Tablet PO (08:16)
[2019-05-17] MEDS: enoxaparin 80 mg/0.8 mL Syringe 70 MG SUBCUT ×2 (08:16→21:16)
[2019-05-17] MEDS: sertraline 50 mg Tablet PO (09:19)
--- NOTE | 2019-05-17 10:14 | PM.PN ---
Subjective Subjective: Interval history: Subjective improvement is on his breathing however he is still requiring oxygen at 11 L/min with desaturation to 77%. He is currently satting 91% on a high flow nasal cannula at 8 L/min. Blood pressure is 125/60. Heart rate has been under control. CT of the chest that was performed overnight showed bilateral patchy airspace densities which may represent multifocal pneumonia versus pulmonary edema versus inflammatory pneumonitis such as ARDS. There was also noted to be marked degenerative changes of the right sternoclavicular joint with a large joint effusion and small amount of gas which raise concern for sternoclavicular joint infection.. Blood per additional history obtained this morning he denies any recent travel. He has lived in [place] up to 3 months prior to presentation. He has dogs as pets at home. No history of animal bites. No other animal contact. He has not been on steroids for any extended amount of time. HIV status is negative. Medications: Reviewed: Yes Vitals/I&O/Wt Last Vital Signs Temp 98.2 F 05/17/19 02:00 Pulse 76 05/17/19 09:00 Resp 29 H 05/17/19 09:00 BP 125/60 05/17/19 09:00 Pulse Ox 91 05/17/19 09:00 05/16/19 05/17/19 05/17/19 22:59 06:59 14:59 Intake Total 170 / 170 Output Total 0 / 0 Balance 0 / 0 170 / 170 Weight last 48 hrs Weight 67.585 kg Weight 67.132 kg Physical Exam Narrative: EXAM NARRATIVE: General he is awake alert, appears comfortable, subjectively states that he is breathing better. He is not noted to be in any acute distress while lying still in bed. HEENT high flow nasal cannula in place. Chest wall no signs of cellulitis at the pacemaker pocket. CVS S1-S2 is normal Respiratory system bilateral crackles to auscultation in the infra-scapular areas. Abdomen is soft nondistended nontender Extremities status post right AKA. No edema on the remaining left leg. Data : 05/17/19 05:31 05/17/19 05:31 Micro: Microbiology 05/16/19 16:29 Blood Culture - Preliminary Blood SPECIMEN COLLECTED 05/16/19 16:29 Blood Culture - Preliminary Blood SPECIMEN COLLECTED A&P Assessment and plan (1) Sepsis: Status: Acute Code(s): A41.9 - Sepsis, unspecified organism (2) NSTEMI (non-ST elevated myocardial infarction): Status: Acute Code(s): I21.4 - Non-ST elevation (NSTEMI) myocardial infarction (3) Right lower lobe pneumonia: Status: Acute Code(s): J18.9 - Pneumonia, unspecified organism (4) Peripheral vascular disease: Status: Acute Code(s): I73.9 - Peripheral vascular disease, unspecified (5) CAD (coronary artery disease): Status: Acute Code(s): I25.10 - Atherosclerotic heart disease of [place] coronary artery without angina pectoris (6) Hypertension: Status: Acute Code(s): I10 - Essential (primary) hypertension Additional A&P Information Continue monitoring in the ICU. Pneumonia: On CTA chest performed yesterday, there is evidence of bilateral patchy pulmonary infiltrates which may represent multifocal pneumonia versus inflammatory process such as pneumonitis. Possibility of viral pneumonitis cannot be excluded. Continue broad-spectrum antibiotic coverage with Zosyn, vancomycin and atypical coverage with levofloxacin. Bacterial antigen panel and Legionella antigen pending. MRSA nasal PCR also pending. Patient does not have any classical risk factors or immunocompromising conditions to think of pneumocystis pneumonia, though it can have similar presentation on CT chest. To rule out this possibility we checked an LDH screen yesterday which was mildly elevated. However this needs to be interpreted cautiously as LDH may be elevated because of the NSTEMI as well. We will check BD glucan screening and also obtain PCP PCR testing from induced sputum. Additionally some similar findings may be seen with viral pneumonitis, will check respiratory viral panel. Influenza swab was negative. High suspicion for ARDS given radiological pattern seen on CT. Awaiting blood cultures. Unsure how the sternoclavicular joint effusion and possible infection time into the whole picture unless patient results return as being bacteremic. Given that amiodarone may be potentially playing a part in pneumonitis type picture seen currently, we will discontinue amiodarone and monitor closely on telemetry. I am unsure of the indication of amiodarone. Patient does have an AICD in place which she says last fired in 2009. If needed in case of any arrhythmias we will start alternate antiarrhythmics. Duonebs inhalation, supplemental 02 titrated to keep 02 sat >92% Bipap if needed blood culture, check lactate Sternoclavicular joint effusion with gas raising concern for septic arthritis: Sternoclavicular joint osteomyelitis is an exceedingly rare infection with incidence of approximately 1% of all infectious arthritis. Due to rarity of the disease there is no great consensus about how to treat such infections, that is whether to treat conservatively with a prolonged course of antibiotics versus surgical resection and debridement of the joint.. A large majority are secondary to Staphylococcus aureus infections. On examination of the chest there is no external signs of infection such as cellulitis or acute focal tenderness in the area. He does not appear to be a contiguous spread. For now given that patient has multiple ongoing issues including N STEMI and hypoxic respiratory failure, we will concentrate our efforts towards conservative management with antibiotics. ECG osteomyelitis may result in complications including but not limited to empyema, mediastinitis, osteomyelitis and septic thrombophlebitis. CT performed yesterday did not show any evidence of the above complications. We will additionally obtain a venous duplex of the right upper extremity to rule out any thrombophlebitis. NSTEMI: Given elevated troponin with significant 2 hr delta, significant PMH of CAD and vasculopathy, ACS ruled in. Unclear chronicity of EKG changes. Continue aspirin 81 mg daily continue Plavix. Start Lipitor 40mg qd. Continue Lovenox 1mg/kg q12h Echocardiogram to estimate EF, look for RWMAs- taken yesetrday, read pending Lasix 40mg iv x 1 today. Poor urine output overnight. renal function stable Stop amiodarone as above Cardiology consult today. Elevated BNP, unclear past h/o CHF. No diuretics on home medication list. Echocardiogram as above. Patient has AICD in place. will interrogate device. Code status: full code DVT ppx: on therapeutic lovenox Attestations Medical Necessity Statement*: Admitted for management of hypoxic respiratory failure, sepsis, bilateral pneumonia Critical Care Time: Critical Care Time (min): 45 Coding Level of Care Code Acute Mine Exploration Engineer for [facility] Fwd Diagnoses Sepsis A41.9 NSTEMI (non-ST elevated myocardial infarction) I21.4 Right lower lobe pneumonia J18.9 Peripheral vascular disease I73.9 CAD (coronary artery disease) I25.10 Hypertension I10
--- NOTE | 2019-05-17 11:06 | USR_ITS ---
PROCEDURE INFORMATION: Exam: US Duplex Right Lower Extremity Veins, Limited Exam date and time: 05/17/2019 11:08 AM Age: 68 years old Clinical indication: Abnormal findings; Abnormal imaging study of limbs; (see chest cta); Additional info: R/O dvt TECHNIQUE: Imaging protocol: Real-time Duplex ultrasound of the Right Lower Extremity with 2-D donald scale, color Doppler flow and spectral waveform analysis with image documentation. Limited exam was focused on the right lower extremity veins. COMPARISON: No relevant prior studies available. FINDINGS: Right deep veins: Unremarkable. The common femoral, femoral, proximal profunda femoral and popliteal veins are patent without thrombus. Normal Doppler waveforms. Normal compressibility and/or augmentation response. Right superficial veins: Unremarkable. Saphenofemoral junction is patent without thrombus. Soft tissues: Unremarkable. US/[place] [id number] IMPRESSION: No acute findings. No evidence of deep vein thrombosis.
--- NOTE | 2019-05-17 11:06 | XRR_ITS ---
PROCEDURE INFORMATION: Exam: XR Right Femur Exam date and time: 05/17/2019 11:21 AM Age: 68 years old Clinical indication: Pain; Thigh; Right; Prior surgery; Additional info: RT leg pain. Above knee amputation 01/2019. Evaluation for possible cindy TECHNIQUE: Imaging protocol: XR Right femur. Views: 2 views. COMPARISON: No relevant prior studies available. FINDINGS: Bones/joints: There is above the knee amputation of the right femur. No acute bony abnormalities are seen. No acute fracture. Soft tissues: The right femur stump shows unremarkable soft tissue. Vascular calcifications are seen in the right leg XR/XR femur RT min 2V* [id number] IMPRESSION: No acute findings. Above the knee amputation right femur. Otherwise negative examination
[2019-05-17 11:39] LABS: Estmated Average Glucose 105; Hemoglobin A1C 5.3 % (4.0-6.0)
[2019-05-17] MEDS: FUROsemide 10 mg/mL SDV 4mL 40 MG IVP ×2 (11:53→17:35)
[2019-05-17 12:10] LABS: Glucose Point of Care 103 mg/dL (70-110)
--- NOTE | 2019-05-17 14:59 | PM.CONSULT ---
Providers/Reason For Consult Consulting Physican/Specialty*: Cardiology Reason for Consult*: Patient regarding continuation hospitalization for above defined care. Respiratory failure CHF exacerbation Non-ST elevation [place] Attending Physician: Sury Dorsey MD Primary Care Provider: Erik Pickering APN History of Present Illness History of Present Illness Kristian Valencia is a 68 year old male Who is known to me from My clinic Recently moved to [place] , Few weeks back he established care with me Was admitted with respiratory failure And sepsis. Patient past medical history is complicated for vascular pathology, history of peripheral vascular disease status post amputation of right lower limb, history of ischemic cardiomyopathy status post ICD with severely depressed left ventricle ejection fraction into 30%, History of hypertension hyperlipidemia, history of COPD with tobacco abuse and history of ventricular tachycardia for which he was maintained on amiodarone. Patient was admitted with worsening of respiratory Status and failure. He is being treated for COPD exacerbation but has not Had considerable improvement.We have been asked to assist in his care in regards to assess possible amiodarone toxicity,Non-ST elevation [place] and congestive heart failure exacerbation. Currently patient denies any chest pain. He is laying in the semi-Dorman position on oxygen. Blood pressure francisco he is stable. Heart rate is also ccontrolled. Review of Systems General: Reports: 10 or more systems reviewed and unremarkable except in HPI and below Const: Reports: chills and fatigue; Denies: fever, body aches, malaise or night sweats Eyes: Denies: change in vision or blurry vision ENMT: Denies: throat pain, painful swallowing, hoarseness, swelling of lips/tongue, oral sores/lesions, dental pain, nasal discharge or nasal congestion Card: Reports: chest pain, shortness of breath on exertion and shortness of breath when lying down; Denies: palpitations, irregular heart rhythm, edema, swelling of feet/ankles, lightheadedness, syncope or pre-syncope Resp: Reports: shortness of breath and productive cough; Denies: wheezing, stridor or pain on inspiration GI: Reports: diarrhea; Denies: abdominal pain, nausea, vomiting, constipation or bloating : Denies: flank pain, difficulty urinating, painful urination, urinary frequency, urinary urgency, urinary hesitancy or urinary dribbling Musc: Denies: neck pain, back pain, extremity pain, extremity swelling, joint pain, joint swelling or redness Skin/Breast: Denies: rash, itching, redness or sensitivity to light Neuro: Denies: headache, numbness in extremities, weakness in extremities, changes in sensation, lack of coordination, difficulty walking, frequent falls, dizziness, vertigo or confusion Psych: Denies: anxiety, depression, loss of interest, visual hallucinations, auditory hallucinations, suicidal ideation or homicidal ideation Endo: Denies: excessive urination, excessive thirst, tired all the time or cold intolerance Vivek/Lymph: Denies: easy bruising, easy bleeding, petechiae, enlarged lymph nodes or tender lymph nodes Meds/Allergies Home Medications and Allergies Home Medications Medication Instructions Recorded Confirmed Type amiodarone 200 mg PO BID 05/16/19 05/16/19 History clopidogrel [Plavix] 75 mg PO DAILY 05/16/19 05/16/19 History multivitamin,qw-viys-vhsbeont 1 tab PO DAILY 05/16/19 05/16/19 History [Complete Multivitamin] quetiapine [Seroquel] 25 mg PO QPM 05/16/19 05/16/19 History sertraline 50 mg PO DAILY 05/16/19 05/16/19 History simvastatin 10 mg PO QPM 05/16/19 05/16/19 History Allergies Allergy/AdvReac Type Severity Reaction Status Date / Time No Known Allergies Allergy Verified 05/16/19 15:10 Current Medications Current Medications Generic Name Dose Route Start Last Admin Trade Name Freq PRN Reason Stop Dose Admin Albuterol/Ipratropium 3 ml 05/17/19 03:00 05/17/19 14:25 Duoneb INHALATION 3 ml Q6H PRN Administration SHORTNESS OF BREATH Clopidogrel Bisulfate 75 mg 05/17/19 09:00 05/17/19 08:16 Plavix PO 75 mg DAILY CLAUDIA Administration Enoxaparin Sodium 70 mg 05/16/19 21:00 05/17/19 08:16 Lovenox 1 mg/kg (70 mg) 70 mg SUBCUT Administration Q12H CLAUDIA Hydromorphone HCl 2 mg 05/17/19 11:09 05/17/19 11:53 Dilaudid Tab PO 2 mg Q6H PRN Administration PAIN Piperacillin Sod/Tazobactam 50 mls @ 12.5 mls/hr 05/16/19 20:45 05/17/19 11:52 Sod 3.375 gm/ Sodium Chloride IV 12.5 mls/hr Q8H CLAUDIA Administration Protocol As Directed Vancomycin HCl 1,250 mg/ 250 mls @ 250 mls/hr 05/17/19 00:00 05/17/19 02:09 Sodium Chloride IV 250 mls/hr Q18H CLAUDIA Administration Protocol As Directed Insulin Aspart 0 unit 05/16/19 21:00 05/17/19 12:12 Novolog SUBCUT Not Given WM&BEDTIME CLAUDIA Protocol Levofloxacin 750 mg 05/17/19 09:00 05/17/19 08:16 Levaquin PO 750 mg DAILY CLAUDIA Administration Protocol Morphine Sulfate 2 mg 05/16/19 18:42 05/16/19 23:10 Morphine IVP 2 mg Q4H PRN Administration SEVERE PAIN Ondansetron HCl 4 mg 05/16/19 18:42 05/16/19 23:00 Zofran IVP 4 mg Q8H PRN Administration vomiting, or N/V if npo Sertraline HCl 50 mg 05/17/19 09:00 05/17/19 09:19 Zoloft PO 50 mg DAILY CLAUDIA Administration PFSH Acute PFSH: Statuses (acute, chronic, etc) shown below reflect problem list status as previously entered and may not be historically accurate Medical History (Updated 05/17/19 @ 15:50 by Alicia Hutchison MD) Amputation above knee (Acute) History of ventricular tachycardia (Acute) Hypertension (Acute) Pacemaker (Acute) Peripheral vascular disease (Acute) Surgical History Hx of CABG (Acute) Hx of CABG (Acute) S/P femoral-popliteal bypass surgery (Acute) Social History Smoking and tobacco status: current every day smoker Vitals/I&O/Wt Last Vital Signs Temp 97.7 F 05/17/19 14:11 Pulse 69 05/17/19 14:28 Resp 16 05/17/19 14:25 BP 103/56 05/17/19 14:17 Pulse Ox 90 05/17/19 14:25 05/16/19 05/17/19 05/17/19 22:59 06:59 14:59 Intake Total 220 / 220 Output Total 0 / 0 480 / 480 Balance 0 / 0 -260 / -260 Weight last 48 hrs Weight 149 lb Weight 148 lb Physical Exam Narrative: EXAM NARRATIVE: GENERAL: Patient is awake and lethargic NECK: No jugular vein distension. HEENT: No cyanosis. No icterus. No pallor. HEART: Regular S1 and S2. No murmur, rub or gallop. LUNGS: Decreased breath sound bilaterally. ABDOMEN: Soft, nontender and nondistended. Positive bowel sounds. No guarding, rebound or tenderness. CENTRAL NERVOUS SYSTEM: Grossly nonfocal. EXTREMITIES: Lower extremities without edema , right side amputation Data Micro: Micro: Microbiology 05/16/19 16:29 Blood Culture - Pr eliminary Blood SPECIMEN [facility] TAISHA 05/16/19 16:29 Blood Culture - Pr eliminary Blood SPECIMEN [facility] A&P Assessment and plan (1) Acute exacerbation of CHF (congestive heart failure): Respiratory failure could be multifactorial with acute congestive Systolic heart failure. We will continue IV Lasix 40 mg once a day IV. We will continue to monitor the patient. I have discussion with my hospitalist colleague Dr. Ga with initial suspicion for amiodarone toxicity however after examining the patient and as suggested by our medicine service that patient has high white cell count COPD exacerbation is more likely. We may will resume amiodarone . Status: Acute Code(s): I50.9 - Heart failure, unspecified (2) NSTEMI (non-ST elevated myocardial infarction): Patient has history of extensive coronary artery disease, in the presence of sepsis and demand ischemia most likely it is type II non-ST elevation [place] we will continue to treat though with anticoagulation for now. Status: Acute Code(s): I21.4 - Non-ST elevation (NSTEMI) myocardial infarction (3) Peripheral vascular disease: Stable. Continue current regimen Status: Acute Code(s): I73.9 - Peripheral vascular disease, unspecified (4) Hypertension: Stable Status: Acute Code(s): I10 - Essential (primary) hypertension (5) Sepsis: As per medicine. Patient is on IV antibiotics Status: Acute Code(s): A41.9 - Sepsis, unspecified organism (6) History of ventricular tachycardia: Patient has history of ventricular tachycardia that is why he is on amiodarone. For now we will Resume however he did not improve with IV diuresis and antibiotic we may can discontinue.. 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
[2019-05-17 17:39] LABS: Glucose Point of Care 102 mg/dL (70-110)
[2019-05-17] MEDS: LORazepam 2 mg/mL INJ 1 mL 0.5 MG IVP (21:06)
[2019-05-17 21:22] LABS: Glucose Point of Care 112 mg/dL (70-110)
[2019-05-18] VITALS (32 sets, daily range): BP systolic 92–124; BP diastolic 42–66; PULSE 61–82; RESP 20–35; TEMP 36.4; O2SAT 76–98
[2019-05-18] MEDS: ipratropium-albuterol 3 mL Neb INHALATION ×4 (01:38→20:46)
[2019-05-18 02:11] LABS: Basophils % 0.1 %; Hematocrit 30.6 % (42.0-52.0); Hemoglobin 10.2 g/dL (11.7-16.6); Lymphocytes # 0.3 10^3/uL (0.8-4.8); Lymphocytes % 1.7 %; Mean Corpuscular HGB Conc 33.3 g/dL (30.0-36.0); Mean Corpuscular Hemoglobin 28.2 pg (28.0-34.0); Mean Corpuscular Volume 84.5 fL (80-94); Mean Platelet Volume 9.4 fL (7.4-10.4); Monocytes # 0.4 10^3/uL (0.2-0.9); Monocytes % 2.2 %; Neutrophils # 18.2 10^3/uL (1.8-7.7); Neutrophils % 95.5 %; Nucleated Red Blood Cells % 0 %; Platelet Count 318 10^3/cmm (130-400); Red Blood Count 3.62 10^6/uL (4.1-5.3); White Blood Count 19.1 10^3/uL (4.0-10.0)
[2019-05-18 02:23] LABS: ABG PCO2 41.6 mmHg (35-45); ABG PH Result 7.36 (7.35-7.45); Alveolar-Arterial Oxygen Gradi 384.1 mmHg (5-10); Arterial Blood Gas Hematocrit 32.8 % (42-52); Base Excess ABG -1.7 mmol/L (-2.0-2.0); Blood Gas Sample Site Brachial, left; Blood Gas Sample Type Arterial; Carboxyhemoglobin 0.2 %THgb (0.4-20.1); HCO3 ABG 23.7 mmol/L (22-26); HGB O2 Sat 98.3 % (95-100); Ionized Calcium Level - ABG 1.2 mmol/L (1.1-1.4); Methemoglobin 0.3 % (0.4-1.5); Oxygen Device BIPAP; Oxygen Saturation ABG 98.8; Potassium Level - ABG 3.7 mmol/L (3.5-5.0); Total Hemoglobin 10.7 g/dL (14-18)
[2019-05-18 02:29] LABS: Anion Gap 17.9 (5-19); Blood Urea Nitrogen 27 mg/dL (8-23); Calcium 9.2 mg/dL (8.5-10.5); Carbon Dioxide 22 mmol/L (22-29); Chloride 100 mmol/L (98-107); Glomerular Filtration Rate 83.9 mL/min (90-130); Glucose 136 mg/dL (74-106); Magnesium 2.2 mg/dL (1.7-2.3); Osmolality Calculated 281 mOsm/kg (285-295); Potassium 3.9 mmol/L (3.5-5.1); Sodium 136 mmol/L (136-145)
--- NOTE | 2019-05-18 02:46 | ECG_ITS ---
Measurements Intervals [place] Rate: 65 P: 62 [place]: 192 QRS: 17 QRSD: 157 T: 170 QT: 404 QTc: 423 SINUS RHYTHM INTRAVENTRICULAR CONDUCTION DELAY [130+ ms QRS DURATION] LATERAL MYOCARDIAL INFARCTION [40+ ms Q WAVE AND/OR ST/T ABNORMALITY IN I/aVL/V5/V6], OF INDETERMINATE AGE INFERIOR MYOCARDIAL INFARCTION [40+ ms Q WAVE AND/OR ST/T ABNORMALITY IN II/aVF], PROBABLY OLD Compared to ECG 05/17/2019 02:05:42 No significant changes Electronically Signed On 05-18-2019 18:53:11 CONSULTING SERVICES PROJECT MANAGER by Alicia Hutchison M.D. [email or web address]
[2019-05-18 04:52] LABS: Glucose Point of Care 113 mg/dL (70-110)
[2019-05-18] MEDS: piperacillin-tazobactam 3.375 GM in sodium chloride 0.9% (plus) 50 ML IV (04:53)
[2019-05-18] MEDS: FUROsemide 10 mg/mL SDV 4mL 40 MG IVP (04:53)
[2019-05-18 08:09] LABS: Glucose Point of Care 125 mg/dL (70-110)
--- NOTE | 2019-05-18 09:35 | XRR_ITS ---
PROCEDURE INFORMATION: Exam: XR Chest, 1 View Exam date and time: 05/18/2019 10:01 AM Age: 68 years old Clinical indication: Shortness of breath; Prior surgery; Surgery date: 6+ months; Surgery type: Limited HX due to PT condition, PT on bipap, family not in room to verify HX. ; Additional info: F/up ards TECHNIQUE: Imaging protocol: XR of the chest Views: 1 view. COMPARISON: CR XR chest 1V portable [id number] 05/16/2019 3:11 PM FINDINGS: Tubes, catheters and devices: There is a left subclavian combination dual chamber pacemaker AICD device. Lungs: Bilateral central bronchial wall thickening and haziness. No septal line formation or fissural thickening. Nonspecific left infrahilar airspace disease. Pleural space: No pleural effusion or pneumothorax. Heart/Mediastinum: The cardiac silhouette is not enlarged. The mediastinal contours are normal. Bones/joints: Prior median sternotomy. XR/XR chest 1V portable [id number] IMPRESSION: 1. Bilateral bronchial inflammation/edema. 2. Nonspecific left infrahilar airspace disease. 3. Resolution of pleural effusions.
[2019-05-18] MEDS: aspirin 81 mg EC Tablet PO (10:13)
[2019-05-18] MEDS: levoFLOXacin 750 mg Tablet PO (10:14)
[2019-05-18] MEDS: clopidogrel 75 mg Tablet PO (10:14)
[2019-05-18] MEDS: sertraline 50 mg Tablet PO (10:14)
[2019-05-18] MEDS: FUROsemide 10 mg/mL SDV 10mL 60 MG IVP (10:15)
[2019-05-18] MEDS: enoxaparin 80 mg/0.8 mL Syringe 70 MG SUBCUT ×2 (10:28→21:42)
[2019-05-18 10:50] LABS: Glucose Point of Care 149 mg/dL (70-110)
[2019-05-18 11:45] LABS: Vancomycin Trough 6.4 ug/mL (10-15)
[2019-05-18] MEDS: cefepime 2,000 MG in sodium chloride 0.9% (plus) 50 ML 100 MG IV (12:07)
[2019-05-18 12:22] LABS: Procalcitonin 0.88 ng/mL (0-0.5)
--- NOTE | 2019-05-18 12:27 | P.PN_ITS ---
Subjective Subjective: Interval history: Continues to have high 02 requirements. Was agitated overnight, removing oxygen and BiPAP multiple occassions. On RA, 02 sat dipped to 50%. On being placed back on Bipap, p02 on ABG 123 at 80% fi02. Did receive some benzodiazepenes overnight. At breakfast was noted to be uncoordinated with attempts to self feed. Currently awake and alert but irritable. Upset at being NPO. Received 100mg iv lasix this morning. Echo with reduced LVEF 30%. Leukocytosis a t 19. Renal function stable Medications: Reviewed: Yes Vitals/I&O/Wt Last Vital Signs Temp 97.6 F 05/18/19 08:43 Pulse 69 05/18/19 11:29 Resp 20 H 05/18/19 10:42 BP 119/58 05/18/19 10:42 Pulse Ox 93 05/18/19 11:29 05/17/19 05/18/19 05/18/19 22:59 06:59 14:59 Intake Total 170 / 750 350 / 1100 120 / 120 Output Total 250 / 730 820 / 820 Balance - / 20 350 / 370 -700 / -700 Weight last 48 hrs Weight 66.451 kg Weight 67.585 kg Weight 67.132 kg Physical Exam Narrative: EXAM NARRATIVE: General he is awake alert, irritable, keeps stating he wants to leave HEENT high flow nasal cannula in place. Chest wall no signs of cellulitis at the pacemaker pocket. CVS S1-S2 is normal Respiratory system bilateral crackles and scattered wheezing B/L Abdomen is soft nondistended nontender Extremities status post right AKA. Stump looks healthy. No edema on the remai chico left leg. Data : 05/18/19 02:04 05/18/19 02:04 Micro: Microbiology 05/17/19 12:45 Bacterial Antigens - Final Urine,Clean Catch 05/16/19 16:29 Blood Culture - Preliminary Blood NEGATIVE TO DATE 05/16/19 16:29 Blood Culture - Preliminary Blood NEGATIVE TO DATE 05/17/19 12:45 Legionella Urinary Antigen - Final Urine,Clean Catch A&P Assessment and plan (1) Sepsis: Status: Acute Code(s): A41.9 - Sepsis, unspecified organism (2) NSTEMI (non-ST elevated myocardial infarction): Status: Acute Code(s): I21.4 - Non-ST elevation (NSTEMI) myocardial infarction (3) Right lower lobe pneumonia: Status: Acute Code(s): J18.9 - Pneumonia, unspecified organism (4) Peripheral vascular disease: Status: Acute Code(s): I73.9 - Peripheral vascular disease, unspecified (5) CAD (coronary artery disease): Status: Acute Code(s): I25.10 - Atherosclerotic heart disease of [place] coronary artery without angina pectoris (6) Hypertension: Status: Acute Code(s): I10 - Essential (primary) hypertension Additional A&P Information Continue monitoring in the ICU. Pneumonia: On CTA chest performed yesterday, there is evidence of bilateral patchy pulmonary infiltrates which may represent multifocal pneumonia versus inflammatory process such as pneumonitis. Possibility of viral pneumonitis cannot be excluded. Continue broad-spectrum antibiotic coverage with current antibiotics. Change zosyn to cefepime to minimize salt and fluid load. Continue vancomycin for now while pending MRSA screen and until blood cultures definitively reported negative. Empiric Levofloxacin x 3 days. Urine legionella negative. Bacterial antigen panel negative Sputum Gram stain pending Patient does not have any classical risk factors or immunocompromising conditions to think of pneumocystis pneumonia, though it can have similar presentation on CT chest. Elevated LDH difficult to interpret in the setting of ongoing WI. BD glucan and PCP PCR testing from induced sputum pending. Additionally some similar findings may be seen with viral pneumonitis, pending respiratory viral panel. Influenza swab was negative. High suspicion for ARDS given radiological pattern seen on CT and low p02/fi02 ratio. Aggressive diuresis--> increase diuresis to 80 mg iv q12h. Received 100mg iv this morning. Place Barr for accurate I/O. Will attempt for net negative~1.5L over next 24hrs. Currently on Amiodarone for h/o VT. Discussed with cardiology. Less concerning overall for amiodarone induced lung injury. Okay to continue for now Duonebs inhalation, supplemental 02 titrated to keep 02 sat >92% Bipap if needed. Low threshold for intubation with mechanical ventilation. Sternoclavicular joint effusion with gas raising concern for septic arthritis: Sternoclavicular joint osteomyelitis is an exceedingly rare infection with incidence of approximately 1% of all infectious arthritis. This finding is unlikely to be the source of sepsis at this time unless blood cx returns with bacteremia. Due to rarity of the disease there is no great consensus about how to treat such infections, that is whether to treat conservatively with a prolonged course of antibiotics versus surgical resection and debridement of the joint.. A large majority are secondary to Staphylococcus aureus infections. On examination of the chest there is no external signs of infection such as cellulitis or acute focal tenderness in the area. He does not appear to be a contiguous spread. For now given that patient has multiple ongoing issues including N STEMI and hypoxic respiratory failure, we will concentrate our efforts towards conservat olman management with antibiotics. No local complications noted. Will repeat CT in few days to see if findings still persisting. NSTEMI: Given elevated troponin with significant 2 hr delta, significant PMH of CAD and vasculopathy, ACS ruled in. Unclear chronicity of EKG changes. Continue aspirin 81 mg daily continue Plavix. Lipitor 40mg qd. Continue Lovenox 1mg/kg q12h Echocardiogram LVEF 30%, RWMA+ Elevated BNP, unclear past h/o CHF. No diuretics on home medication list. Echocardiogram as above. Aggressive diuresis now. 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 Diagnoses Sepsis A41.9 NSTEMI (non-ST elevated myocardial infarction) I21.4 Right lower lobe pneumonia J18.9 Peripheral vascular disease I73.9 CAD (coronary artery disease) I25.10 Hypertension I10
[2019-05-18 13:25] LABS: Alanine Aminotransferase 82 U/L (0-41); Albumin Level 2.5 g/dL (3.5-5.2); Alkaline Phosphatase 103 IU/L (40-130); Aspartate Amino Transferase 117 U/L (0-40); Globulin 4.2 g/dL (1.3-4.6); Total Bilirubin 0.8 mg/dL (0.15-1.2); Total Protein 6.7 g/dL (6.6-8.7)
--- NOTE | 2019-05-18 16:57 | P.PN_ITS ---
Subjective Subjective: Interval history: Today's feeling better he is breathing better x- rays also improved. Medications: Reviewed: Yes Vitals/I&O/Wt Last Vital Signs Temp 97.6 F 05/18/19 08:43 Pulse 69 05/18/19 14:40 Resp 32 H 05/18/19 14:40 BP 111/56 05/18/19 14:40 Pulse Ox 86 L 05/18/19 14:40 05/18/19 05/18/19 05/18/19 06:59 14:59 22:59 Intake Total 350 / 1100 120 / 120 Output Total 820 / 820 Balance 350 / 370 -700 / -700 Weight last 48 hrs Weight 146 lb 8 oz Weight 149 lb Physical Exam Narrative: EXAM NARRATIVE: GENERAL: Patient is awake and lethargic NECK: No jugular vein distension. HEENT: No cyanosis. No icterus. No pallor. HEART: Regular S1 and S2. No murmur, rub or gallop. LUNGS: Decreased breath sound bilaterally. ABDOMEN: Soft, nontender and nondistended. Positive bowel sounds. No guarding, rebound or tenderness. CENTRAL NERVOUS SYSTEM: Grossly nonfocal. EXTREMITIES: Lower extremities without edema , right side amputation Urinary Catheter Management^: Mantilla: Cath Placed During This Visit: no Data : 05/18/19 02:04 05/18/19 02:04 Micro: Microbiology 05/17/19 12:45 Bacterial Antigens - Final Urine,Clean Catch 05/16/19 16:29 Blood Culture - Preliminary Blood NEGATIVE TO DATE 05/16/19 16:29 Blood Culture - Preliminary Blood NEGATIVE TO DATE 05/17/19 12:45 Legionella Urinary Antigen - Final Urine,Clean Catch A&P Assessment and plan (1) Acute exacerbation of CHF (congestive heart failure): Continue current regimen with IV diuretics. Continue amiodarone as well. Patient started improving . Status: Acute Code(s): I50.9 - Heart failure, unspecified (2) NSTEMI (non-ST elevated myocardial infarction): Patient has history of extensive coronary artery disease, in the presence of sepsis and demand ischemia most likely it is type II non-ST elevation [place] we will continue to treat though with anticoagulation for now. Status: Acute Code(s): I21.4 - Non-ST elevation (NSTEMI) myocardial infarction (3) Peripheral vascular disease: Stable. Continue current regimen Status: Acute Code(s): I73.9 - Peripheral vascular disease, unspecified (4) Hypertension: Stable Status: Acute Code(s): I10 - Essential (primary) hypertension (5) Sepsis: As per medicine. Patient is on IV antibiotics Status: Acute Code(s): A41.9 - Sepsis, unspecified organism (6) History of ventricular tachycardia: Less likely to be amiodarone toxicity as clinically patient started improving most likely he has COPD exacerbation with Congestive heart failure. Continue IV antibiotic, continue IV Lasix and amiodarone. 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
[2019-05-18 18:24] LABS: Glucose Point of Care 126 mg/dL (70-110)
--- NOTE | 2019-05-18 20:56 | PC.NURSE ---
Shift change Pt agitated, pulling at aviles catheter. States catheter needs be dumped. Pt repositioned and hollared out in pain. Pt states his pain is 7/10. Pt educated on catheter, and that nursing dumps it and that he does not need to empty the tubing. Pt educated that he is NPO at this time. Pain medication administered.
[2019-05-18] MEDS: FUROsemide 10 mg/mL SDV 4mL 80 MG IVP (21:42)
[2019-05-18] MEDS: amiodarone 200 mg Tablet PO (21:43)
[2019-05-19] VITALS (17 sets, daily range): BP systolic 96–130; BP diastolic 42–85; PULSE 62–74; RESP 20–39; TEMP 36.5–36.6; O2SAT 87–97; BMI 24.3
[2019-05-19] MEDS: cefepime 2,000 MG in sodium chloride 0.9% (plus) 50 ML 100 MG IV ×3 (01:30→23:08)
[2019-05-19 02:54] LABS: Glucose Point of Care 142 mg/dL (70-110)
[2019-05-19] MEDS: ipratropium-albuterol 3 mL Neb INHALATION ×4 (03:13→21:18)
--- NOTE | 2019-05-19 04:04 | PC.NURSE ---
Pt has became confused. Pulling at nasal canula all wires, pulling at aviles catheter - pt states that they hurt . Aviles cath leaked in bed. Bed bath and complete linen change performed. Pt instructed several times to leave wires and lines attached.
[2019-05-19 04:42] LABS: Basophils % 0.1 %; Hematocrit 31.4 % (42.0-52.0); Hemoglobin 10.5 g/dL (11.7-16.6); Lymphocytes # 0.4 10^3/uL (0.8-4.8); Lymphocytes % 2.1 %; Mean Corpuscular HGB Conc 33.4 g/dL (30.0-36.0); Mean Corpuscular Hemoglobin 28.5 pg (28.0-34.0); Mean Corpuscular Volume 85.1 fL (80-94); Mean Platelet Volume 9.3 fL (7.4-10.4); Monocytes # 0.5 10^3/uL (0.2-0.9); Monocytes % 2.9 %; Neutrophils # 17.4 10^3/uL (1.8-7.7); Neutrophils % 94.4 %; Nucleated Red Blood Cells % 0 %; Platelet Count 374 10^3/cmm (130-400); Red Blood Count 3.69 10^6/uL (4.1-5.3); Red Cell Distribution Width 15.2 % (12.1-15.1); White Blood Count 18.4 10^3/uL (4.0-10.0)
[2019-05-19 05:07] LABS: Blood Urea Nitrogen 31 mg/dL (8-23); Carbon Dioxide 25 mmol/L (22-29); Chloride 103 mmol/L (98-107); Glomerular Filtration Rate 66.6 mL/min (90-130); Glucose 138 mg/dL (74-106); Magnesium 2.1 mg/dL (1.7-2.3); Osmolality Calculated 289 mOsm/kg (285-295); Sodium 140 mmol/L (136-145)
[2019-05-19 07:32] LABS: Glucose Point of Care 116 mg/dL (70-110)
[2019-05-19] MEDS: levoFLOXacin 750 mg Tablet PO (08:51)
[2019-05-19] MEDS: amiodarone 200 mg Tablet PO ×2 (08:52→17:35)
[2019-05-19] MEDS: aspirin 81 mg EC Tablet PO (08:52)
[2019-05-19] MEDS: enoxaparin 80 mg/0.8 mL Syringe 70 MG SUBCUT ×2 (08:52→20:30)
[2019-05-19] MEDS: clopidogrel 75 mg Tablet PO (08:52)
[2019-05-19] MEDS: FUROsemide 10 mg/mL SDV 4mL 80 MG IVP (09:58)
[2019-05-19] MEDS: potassium chloride premix 40 MEQ/100 ML PREMIX 25 MEQ IV (10:00)
--- NOTE | 2019-05-19 10:34 | P.PN_ITS ---
Subjective Subjective: Interval history: Feeling much better today. Sitting in the chair. Denies any chest pain. Potassium is slightly low Medications: Reviewed: Yes Vitals/I&O/Wt Last Vital Signs Temp 97.7 F 05/19/19 10:32 Pulse 70 05/19/19 10:08 Resp 32 H 05/19/19 10:08 BP 104/54 05/19/19 10:08 Pulse Ox 94 05/19/19 10:08 05/18/19 05/19/19 05/19/19 22:59 06:59 14:59 Intake Total 590 / 710 50 / 760 Output Total 440 / 1260 1500 / 2760 Balance 150 / -550 -1450 / -2000 Weight last 48 hrs Weight 146 lb 8 oz Physical Exam Narrative: EXAM NARRATIVE: GENERAL: Patient is awake and oriented. NECK: No jugular vein distension. HEENT: No cyanosis. No icterus. No pallor. HEART: Regular S1 and S2. No murmur, rub or gallop. LUNGS: Decreased breath sound bilaterally. ABDOMEN: Soft, nontender and nondistended. Positive bowel sounds. No guarding, rebound or tenderness. CENTRAL NERVOUS SYSTEM: Grossly nonfocal. EXTREMITIES: Lower extremities without edema , right side amputation Urinary Catheter Management^: Mantilla: Cath Placed During This Visit: no Data : 05/19/19 04:23 05/19/19 04:23 Micro: Microbiology 05/18/19 15:00 MRSA Culture - Final Nose A&P Assessment and plan (1) Acute exacerbation of CHF (congestive heart failure): Will reduce Lasix to 60 mg IV twice daily. Potassium will be replaced. Status: Acute Code(s): I50.9 - Heart failure, unspecified (2) NSTEMI (non-ST elevated myocardial infarction): Patient has history of extensive coronary artery disease, in the presence of sepsis and demand ischemia most likely it is type II non-ST elevation [place] we will continue to treat conservatively for now. Status: Acute Code(s): I21.4 - Non-ST elevation (NSTEMI) myocardial infarction (3) Peripheral vascular disease: Stable. Continue current regimen Status: Acute Code(s): I73.9 - Peripheral vascular disease, unspecified (4) Hypertension: Stable Status: Acute Code(s): I10 - Essential (primary) hypertension (5) Sepsis: As per medicine. Patient is on IV antibiotics Status: Acute Code(s): A41.9 - Sepsis, unspecified organism (6) History of ventricular tachycardia: Less likely to be amiodarone toxicity as clinically patient started improving most likely he has COPD exacerbation with Congestive heart failure. Continue IV antibiotic, continue IV Lasix and amiodarone. Status: Acute Code(s): Z86.79 - Personal history of other diseases of the circulatory system Attestations Medical Necessity Statement*: Patient can move out from ICU if okay with primary care team. 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
--- NOTE | 2019-05-19 12:07 | P.PN_ITS ---
Subjective Subjective: Interval history: No acute events overnight. On evaluation he is saturating 93% on 8 L nasal cannula. During evaluation decreased the oxygen to 7 L and he continued to saturate over 92%. He states feeling much better today. Denies of having any nausea, vomiting, headache, palpitations, cough, chest pain. labs reviewed. Medications: Reviewed: Yes Vitals/I&O/Wt Last Vital Signs Temp 97.7 F 05/19/19 10:32 Pulse 70 05/19/19 10:08 Resp 32 H 05/19/19 10:08 BP 104/54 05/19/19 10:08 Pulse Ox 94 05/19/19 10:08 05/18/19 05/19/19 05/19/19 22:59 06:59 14:59 Intake Total 590 / 710 300 / 1010 Output Total 440 / 1260 1500 / 2760 Balance 150 / -550 -1200 / -1750 Weight last 48 hrs Weight 66.451 kg Physical Exam Narrative: EXAM NARRATIVE: General: No acute distress, AO x3 HEENT: PERRLA, pupils bilaterally equal and reactive Chest: Normal vesicular breath sounds, bilateral fine crackles up to mid chest, equal good air entry bilaterally CVS: S1-S2 regular, no murmurs, no tachycardia, no gallops, no rubs Abdomen: Soft, nontender, no organomegaly, bowel sounds present Neuro: No focal deficits, no facial deformity, AO x3, power 5/5 in all limbs Urinary Catheter Management^: Mantilla: Cath Placed During This Visit: Yes. Data : 05/19/19 04:23 05/19/19 04:23 Micro: Microbiology 05/18/19 15:00 MRSA Culture - Final Nose A&P Assessment and plan (1) ARDS (adult respiratory distress syndrome): Status: Acute Code(s): J80 - Acute respiratory distress syndrome (2) Acute exacerbation of CHF (congestive heart failure): Status: Acute Code(s): I50.9 - Heart failure, unspecified (3) Sepsis: Status: Acute Code(s): A41.9 - Sepsis, unspecified organism (4) Right lower lobe pneumonia: Status: Acute Code(s): J18.9 - Pneumonia, unspecified organism (5) NSTEMI (non-ST elevated myocardial infarction): Status: Acute Code(s): I21.4 - Non-ST elevation (NSTEMI) myocardial infarction (6) Peripheral vascular disease: Status: Acute Code(s): I73.9 - Peripheral vascular disease, unspecified (7) CAD (coronary artery disease): Status: Acute Code(s): I25.10 - Atherosclerotic heart disease of [place] coronary artery without angina pectoris (8) Hypertension: Status: Acute Code(s): I10 - Essential (primary) hypertension Additional A&P Information ARDS: PF ratio elevated. Most likely due to next picture of congestive heart failure along with right-sided pneumonia. Patient seems to be improving today. Patient is saturating 93% on 7 L nasal cannula. Mildly confused so we will get an ABG. Continue with aggressive diuresis. Keep saturation over 92%. Oxygen supplementation as required. BiPAP nightly. Continue with duo nebs every 6 hourly, budesonide twice daily. Low threshold for intubation. Congestive heart failure: Echocardiogram suggestive of systolic dysfunction with a EF of 35% with grade 2 diastolic dysfunction with regional wall motion abnormality present. Continue with IV diuresis 80 mg every 12 hourly. Daily weights. Strict input and output charting. Overall patient is 2 L negative since admission. We will monitor renal functions. For now stable. Pneumonia: On CTA chest performed yesterday, there is evidence of bilateral patchy pulmonary infiltrates which may represent multifocal pneumonia versus inflammatory process such as pneumonitis. Possibility of viral pneumonitis cannot be excluded. Continue broad-spectrum antibiotic coverage with current antibiotics. Continue with cefepime, vancomycin both renally dosed. Will most likely plan to do a 5-day course if patient continues to improve. Empiric Levofloxacin x 3 days. Will de-escalate antibiotics as per the sputum culture results, blood culture results. MRSA negative. Urine legionella negative. Bacterial antigen panel negative. I nfluenza swab negative. Patient does not have any classical risk factors or immunocompromising cond itions to think of pneumocystis pneumonia, though it can have similar presentation on CT chest. Elevated LDH difficult to interpret in the setting of ongoing [place]. BD glucan and PCP PCR testing from induced sputum pending. Respiratory viral panel pending. NSTEMI: Patient has history of CAD and severe vasculopath. Given the 2-hour delta ACS is ruled in. Case discussed with Dr. Hutchison will like to manage medically. Continue with aspirin, Plavix, statin. We will do Lovenox full dose 1 mg/kg body weight for 5 days. Day 3/5. Lipid panel is reviewed History of VT: Continue amiodarone as patient has history of VT in the past. Patient already has ICD. Replace potassium 40 mg IV. Continue with oral potassium supplementation as well. Target potassium around 4 and magnesium around 2. Sternoclavicular joint effusion with gas raising concern for septic arthritis: Sternoclavicular joint osteomyelitis is an exceedingly rare infection with incidence of approximately 1% of all infectious arthritis. This finding is unlikely to be the source of sepsis at this time unless blood cx returns with b acteremia. Due to rarity of the disease there is no great consensus about how to treat such infections, that is whether to treat conservatively with a prolonged course of antibiotics versus surgical resection and debridement of the joint.. A large majority are secondary to Staphylococcus aureus infections. On examination of the chest there is no external signs of infection such as cellulitis or acute focal tenderness in the area. He does not appear to be a contiguous spread. For now given that patient has multiple ongoing issues including NSTEMI and hypoxic respiratory failure, we will concentrate our efforts towards conservative management with antibiotics. No local complications noted. Will repeat CT in 1 week to see if findings still persisting. We will start patient on Seroquel but at a lower dose. Patient takes Seroquel 50 mg in morning and 25 mg at night. Would only start at 25 mg at night. Code status: full code DVT ppx: on therapeutic lovenox Protonix for PUD prophylaxis. Attestations Medical Necessity Statement*: Needs controlled hospitalization for management of ARDS due to CHF and NSTEMI. Time Spent in Patient Care: 16 - 35 minutes (>than 50% of time spent in counselling and/or direct pt care on unit) . Coding Level of Care Code Acute Lease Administrator for [facility] Fwd Diagnoses ARDS (adult respiratory distress syndrome) J80 Acute exacerbation of CHF (congestive heart failure) I50.9 Sepsis A41.9 Right lower lobe pneumonia J18.9 NSTEMI (non-ST elevated myocardial infarction) I21.4 Peripheral vascular disease I73.9 CAD (coronary artery disease) I25.10 Hypertension I10
--- NOTE | 2019-05-19 14:15 | PC.NURSE ---
Transfer Report called to Joyce Obrien. Patient taken to room 111-2 via wheelchair. Patient tolerated well. Patient taken on 2L nasal cannula. Talyor at bedside at time of transfer. Patient pivot with one nurse assistance. Oriented to room and call light placed within reach, educated on how to use it.
--- NOTE | 2019-05-19 14:48 | PC.SOCIAL ---
Pg 2 of IMM Pg 2 of IMM was explained to patient and family, they verbalized understanding and had no questions. Patient requested for his sister to sign form, copy was provided, and form placed in chart.
[2019-05-19 17:24] LABS: ABG PCO2 38.4 mmHg (35-45); ABG PH Result 7.45 (7.35-7.45); Arterial Blood Gas Hematocrit 34.7 % (42-52); Base Excess ABG 2.3 mmol/L (-2.0-2.0); Blood Gas Allen Test Pos; Blood Gas Sample Site Brachial, right; Blood Gas Sample Type Arterial; HCO3 ABG 26.4 mmol/L (22-26); Oxygen Device NC; PO2 ABG 56.4 mmHg (80.0-100.0)
[2019-05-19] MEDS: atorvastatin 40 mg Tablet 20 MG PO (17:35)
[2019-05-19] MEDS: quetiapine 25 mg Tablet PO (17:36)
[2019-05-19] MEDS: pantoprazole 40 mg SDV IVP (17:36)
--- NOTE | 2019-05-19 18:16 | PC.RESP ---
Patient given Smoking Cessation information.
[2019-05-19] MEDS: nicotine 14 mg Patch 1 PATCH TRANSDERMA (20:30)
[2019-05-19] MEDS: FUROsemide 10 mg/mL SDV 10mL 80 MG IVP (20:32)
--- NOTE | 2019-05-19 20:39 | PC.NURSE ---
PT IS CONFUSED AND PULLED HERRERA CATHETER OUT AND RIPPED IT UP IN PIECES. PATIENT ALSO RIPPED APART O2 TUBING WELL. PATIENT IS AGITATED AND ORIENTATED TO NAME ONLY. FAMILY CAME IN DURING THIS TIME AND WAS ABLE TO HELP REDIRECT PATIENT. THE DOCTOR HAS BEEN NOTIFIED AND A 1:1 ORDER WAS GIVEN.
[2019-05-19 23:45] LABS: Vancomycin Trough 21.9 ug/mL (10-15)
[2019-05-20] VITALS (18 sets, daily range): BP systolic 101–132; BP diastolic 46–55; PULSE 62–69; RESP 17–35; TEMP 36.5–36.8; O2SAT 89–95
--- NOTE | 2019-05-20 01:12 | PC.NURSE ---
PT WAS CONFUSED EARLY THIS EVENING AND ORIENTATED ONLY TO PERSON. PATIENT RIPPED OUT HERRERA CATHER AND TORE THE PLASTIC INTO CHUNCKS WELL THE O2 TUBING. FAMILY CAME INTO ROOM AND WAS ABLE TO REDIRECT AND CALM PATIENT. CALLED AND GOT ORDERS FROM THE HOSPITALIST FOR A 1:1. PATIENT C/O 10/10 PAIN AND PRN PAIN MEDICATIONS WAS GIVEN. GOT ORDERS TO REINSERT HERRERA. PATIENT TOLERATED INSERTION FAIR. 16FR WAS INSERTED USING STERILE TECHNIQUE, 10ML OF SALINE IN THE BALO[place], 400ML WAS EMPTIED FROM BLADDER. WILL CONTINUE TO MONITOR.
[2019-05-20] MEDS: ipratropium-albuterol 3 mL Neb INHALATION ×3 (02:35→20:15)
[2019-05-20 04:17] LABS: Alanine Aminotransferase 146 U/L (0-41); Albumin Level 2.6 g/dL (3.5-5.2); Alkaline Phosphatase 132 IU/L (40-130); Anion Gap 15.3 (5-19); Aspartate Amino Transferase 170 U/L (0-40); Blood Urea Nitrogen 38 mg/dL (8-23); Calcium 8.8 mg/dL (8.5-10.5); Carbon Dioxide 26 mmol/L (22-29); Chloride 102 mmol/L (98-107); Globulin 3.8 g/dL (1.3-4.6); Glomerular Filtration Rate 66.6 mL/min (90-130); Glucose 134 mg/dL (74-106); Magnesium 2.2 mg/dL (1.7-2.3); Potassium 3.3 mmol/L (3.5-5.1); Sodium 140 mmol/L (136-145); Total Bilirubin 0.6 mg/dL (0.15-1.2); Total Protein 6.4 g/dL (6.6-8.7)
[2019-05-20 04:34] LABS: Basophils % 0.1 %; Eosinophils % 0.1 %; Hematocrit 32.3 % (42.0-52.0); Hemoglobin 10.7 g/dL (11.7-16.6); Lymphocytes # 0.7 10^3/uL (0.8-4.8); Mean Corpuscular HGB Conc 33.1 g/dL (30.0-36.0); Mean Corpuscular Hemoglobin 28.5 pg (28.0-34.0); Mean Corpuscular Volume 86.1 fL (80-94); Mean Platelet Volume 9.7 fL (7.4-10.4); Monocytes # 0.6 10^3/uL (0.2-0.9); Monocytes % 3.9 %; Neutrophils # 14.8 10^3/uL (1.8-7.7); Neutrophils % 91.2 %; Nucleated Red Blood Cells % 0 %; Platelet Count 364 10^3/cmm (130-400); Red Blood Count 3.75 10^6/uL (4.1-5.3); Red Cell Distribution Width 15.2 % (12.1-15.1); White Blood Count 16.3 10^3/uL (4.0-10.0)
--- NOTE | 2019-05-20 06:00 | XR_ITS ---
WS: [id number] Portable AP upright chest, 05/20/2019 Clinical Data: chf Comparison: Portable Chest, 05/18/2019 Findings: The heart remains enlarged. The pulmonary vascularity is increased. The permanent pacemaker generator in the wires remain in position. Midline sternotomy sutures are present. No pneumonia or p neumothorax is noted. XR/XR chest 1V portable [id number] Impression: No change in cardiomegaly and pulmonary vascular congestion.
[2019-05-20 06:05] LABS: Estmated Average Glucose 103; Hemoglobin A1C 5.2 % (4.0-6.0)
--- NOTE | 2019-05-20 06:11 | PC.NURSE ---
VANC WAS HELD BECAUSE TROUGH WAS 21.9. PHARMACY WAS CALLED AND NEW DOSING WAS ORDERED. PHARMACIST STATED TO HOLD VANC.
[2019-05-20] MEDS: morphine 4 mg/mL SDV 1 mL 1 MG IVP (11:38)
[2019-05-20] MEDS: cefepime 2,000 MG in sodium chloride 0.9% (plus) 50 ML 100 MG IV (11:40)
[2019-05-20] MEDS: nicotine 14 mg Patch 1 PATCH TRANSDERMA (11:41)
[2019-05-20] MEDS: FUROsemide 10 mg/mL SDV 10mL 80 MG IVP ×2 (11:42→18:33)
[2019-05-20] MEDS: enoxaparin 80 mg/0.8 mL Syringe 70 MG SUBCUT ×2 (11:43→21:02)
[2019-05-20] MEDS: clopidogrel 75 mg Tablet PO (11:44)
[2019-05-20] MEDS: pantoprazole DR 40 mg Tablet PO (11:44)
[2019-05-20] MEDS: amiodarone 200 mg Tablet PO ×2 (11:44→18:33)
[2019-05-20] MEDS: atorvastatin 40 mg Tablet 20 MG PO (11:45)
[2019-05-20] MEDS: aspirin 81 mg EC Tablet PO (11:46)
--- NOTE | 2019-05-20 11:47 | PM.PN ---
Subjective Subjective: Interval history: Continues to be stable. Denies any chest pain or out of usual shortness of breath. He was able to lay flat on the bed. Medications: Reviewed: Yes Vitals/I&O/Wt Last Vital Signs Temp 97.7 F 05/20/19 07:32 Pulse 66 05/20/19 11:36 Resp 20 H 05/20/19 11:38 BP 119/55 05/20/19 11:36 Pulse Ox 90 05/20/19 11:36 05/19/19 05/20/19 05/20/19 22:59 06:59 14:59 Intake Total 170 / 570 60 / 60 Output Total 1500 / 1500 750 / 2250 Balance -1500 / -1100 -580 / -1680 60 / 60 Weight last 48 hrs Weight 146 lb Weight 150 lb 7 oz Physical Exam Narrative: EXAM NARRATIVE: GENERAL: Patient is awake and oriented. NECK: No jugular vein distension. HEENT: No cyanosis. No icterus. No pallor. HEART: Regular S1 and S2. No murmur, rub or gallop. LUNGS: Decreased breath sound bilaterally. ABDOMEN: Soft, nontender and nondistended. Positive bowel sounds. No guarding, rebound or tenderness. CENTRAL NERVOUS SYSTEM: Grossly nonfocal. EXTREMITIES: Lower extremities without edema , right side amputation Urinary Catheter Management^: Mantilla: Cath Placed During This Visit: no Data : 05/20/19 03:45 05/20/19 03:45 A&P Assessment and plan (1) Acute exacerbation of CHF (congestive heart failure): Continue current IV dose of Lasix today switch patient to 40 mg twice daily of Lasix from tomorrow along with potassium chloride 20 mEq twice a day. Status: Acute Code(s): I50.9 - Heart failure, unspecified (2) NSTEMI (non-ST elevated myocardial infarction): Patient has history of extensive coronary artery disease, in the presence of sepsis and demand ischemia most likely it is type II non-ST elevation [place] we will continue to treat conservatively for now. Status: Acute Code(s): I21.4 - Non-ST elevation (NSTEMI) myocardial infarction (3) Peripheral vascular disease: Stable. Continue current regimen Status: Acute Code(s): I73.9 - Peripheral vascular disease, unspecified (4) Hypertension: Stable Status: Acute Code(s): I10 - Essential (primary) hypertension (5) Sepsis: As per medicine. Patient is on IV antibiotics Status: Acute Code(s): A41.9 - Sepsis, unspecified organism (6) History of ventricular tachycardia: Less likely to be amiodarone toxicity as clinically patient started improving most likely he has COPD exacerbation with Congestive heart failure. Continue IV antibiotic, continue IV Lasix and amiodarone. Status: Acute Code(s): Z86.79 - Personal history of other diseases of the circulatory system Attestations Medical Necessity Statement*: Requires continuation hospitalization for above defined care for Coding Level of Care Code Acute Agricultural Research Director for [facility] Fwd History Expanded Problem Focused Exam Expanded Problem Focused Medical Decision Making Moderate Complexity Diagnoses Acute exacerbation of CHF (congestive heart failure) I50.9 NSTEMI (non-ST elevated myocardial infarction) I21.4 Peripheral vascular disease I73.9 Hypertension I10 Sepsis A41.9 History of ventricular tachycardia Z86.79
[2019-05-20] MEDS: potassium chloride premix 40 MEQ/100 ML PREMIX 25 MEQ IV (12:26)
--- NOTE | 2019-05-20 16:18 | PM.PN ---
Subjective Subjective: Interval history: No acute events overnight. On evaluation he is saturating 93% 5 L nonrebreather. Placed the patient on 5 L nasal cannula during interview and the saturation maintained at 91%. He states feeling much better today. Denies of having any nausea, vomiting, headache, palpitations, cough, chest pain. labs reviewed. Medications: Reviewed: Yes Vitals/I&O/Wt Last Vital Signs Temp 97.7 F 05/20/19 07:32 Pulse 68 05/20/19 14:48 Resp 18 05/20/19 14:48 BP 119/55 05/20/19 11:36 Pulse Ox 89 L 05/20/19 14:48 05/20/19 05/20/19 05/20/19 06:59 14:59 22:59 Intake Total 170 / 570 360 / 360 Output Total 750 / 2250 Balance -580 / -1680 360 / 360 Weight last 48 hrs Weight 66.224 kg Weight 68.237 kg Physical Exam Narrative: EXAM NARRATIVE: General: No acute distress, AO x3 HEENT: PERRLA, pupils bilaterally equal and reactive Chest: Normal vesicular breath sounds, bilateral fine crackles up to mid chest, equal good air entry bilaterally CVS: S1-S2 regular, no murmurs, no tachycardia, no gallops, no rubs Abdomen: Soft, nontender, no organomegaly, bowel sounds present Neuro: No focal deficits, no facial deformity, AO x3, power 5/5 in all limbs Urinary Catheter Management^: Mantilla: Cath Placed During This Visit: no Data : 05/20/19 03:45 05/20/19 03:45 A&P Assessment and plan (1) ARDS (adult respiratory distress syndrome): Status: Acute Code(s): J80 - Acute respiratory distress syndrome (2) Acute exacerbation of CHF (congestive heart failure): Status: Acute Code(s): I50.9 - Heart failure, unspecified (3) Sepsis: Status: Acute Code(s): A41.9 - Sepsis, unspecified organism (4) Right lower lobe pneumonia: Status: Acute Code(s): J18.9 - Pneumonia, unspecified organism (5) NSTEMI (non-ST elevated myocardial infarction): Status: Acute Code(s): I21.4 - Non-ST elevation (NSTEMI) myocardial infarction (6) Peripheral vascular disease: Status: Acute Code(s): I73.9 - Peripheral vascular disease, unspecified (7) CAD (coronary artery disease): Status: Acute Code(s): I25.10 - Atherosclerotic heart disease of [place] coronary artery without angina pectoris (8) Hypertension: Status: Acute Code(s): I10 - Essential (primary) hypertension Additional A&P Information ARDS: PF ratio elevated. Most likely due to next picture of congestive heart failure along with right-sided pneumonia. Patient seems to be improving today. Oxygenation seems to be improving. Saturating more than 90% on 5 L nasal cannula now. Continue with aggressive diuresis with Lasix 80 mg IV twice daily. BUN is elevated today but creatinine is stable. No contraction alkalosis. Keep saturation over 92%. Oxygen supplementation as required. BiPAP nightly. Continue with duo nebs every 6 hourly, budesonide twice daily. Low threshold for intubation. Replete potassium. Check ABG around 5 PM. Congestive heart failure: Echocardiogram suggestive of systolic dysfunction with a EF of 35% with grade 2 diastolic dysfunction with regional wall motion abnormality present. Continue with IV diuresis 80 mg every 12 hourly. Daily weights. Strict input and output charting. Overall patient is 2.5 L negative since admission. We will monitor renal functions. For now stable. Gram every 4 hours. Will discontinue the hydromorphone to avoid somnolence or respiratory depression. Pneumonia: On CTA chest performed earlier in this admission, there is evidence of bilateral patchy pulmonary infiltrates which may represent multifocal pneumonia versus inflammatory process such as pneumonitis. Possibility of viral pneumonitis cannot be excluded. Continue broad-spectrum antibiotic coverage with current antibiotics. Continue with cefepime, vancomycin both renally dosed. Will most likely plan to do a 5-day course if patient continues to improve. Empiric Levofloxacin x 3 days finish off today. Will de-escalate antibiotics as per the sputum culture results, blood culture results. MRSA negative. Urine legionella negative. Bacterial antigen panel negative. Influenza swab negative. Patient does not have any classical risk factors or immunocompromising conditions to think of pneumocystis pneumonia, though it can have similar presentation on CT chest. Elevated LDH difficult to interpret in the setting of ongoing [place]. BD glucan and PCP PCR testing from induced sputum pending. Respiratory viral panel pending. NSTEMI: Patient has history of CAD and severe vasculopath. Given the 2-hour delta ACS is ruled in. Case discussed with Dr. Hutchison will like to manage medically. Continue with aspirin, Plavix, statin. We will do Lovenox full dose 1 mg/kg body weight for 5 days. Day 3/5. Lipid panel is reviewed History of VT: Continue amiodarone as patient has history of VT in the past. Patient already has ICD. Replace potassium 40 mg IV. Continue with oral potassium supplementation as well. Target potassium around 4 and magnesium around 2. Sternoclavicular joint effusion with gas raising concern for septic arthritis: Sternoclavicular joint osteomyelitis is an exceedingly rare infection with incidence of approximately 1% of all infectious arthritis. This finding is unlikely to be the source of sepsis at this time unless blood cx returns with bacteremia. Due to rarity of the disease there is no great consensus about how to treat such infections, that is whether to treat conservatively with a prolonged course of antibiotics versus surgical resection and debridement of the joint.. A large majority are secondary to Staphylococcus aureus infections. On examination of the chest there is no external signs of infection such as cellulitis or acute focal tenderness in the area. He does not appear to be a contiguous spread. For now given that patient has multiple ongoing issues including NSTEMI and hypoxic respiratory failure, we will concentrate our efforts towards conservative management with antibiotics. No local complications noted. Will repeat CT in tomorrow before planning to de-escalate on antibiotics.. We will start patient on Seroquel but at a lower dose. Patient takes Seroquel 50 mg in morning and 25 mg at night. Would only start at 25 mg at night. Code status: full code DVT ppx: on therapeutic lovenox Protonix for PUD prophylaxis. Attestations Medical Necessity Statement*: Continued hospitalization for management of acute hypoxic respiratory failure due to CHF. Time Spent in Patient Care: Greater than 35 minutes (>than 50% of time spent in counselling and/or direct pt care on unit). Coding Level of Care Code Acute [employer] Machine Operator for [facility] Fw Diagnoses ARDS (adult respiratory distress syndrome) J80 Acute exacerbation of CHF (congestive heart failure) I50.9 Sepsis A41.9 Right lower lobe pneumonia J18.9 NSTEMI (non-ST elevated myocardial infarction) I21.4 Peripheral vascular disease I73.9 CAD (coronary artery disease) I25.10 Hypertension I10
[2019-05-20] MEDS: quetiapine 25 mg Tablet PO (18:33)
[2019-05-21] VITALS (14 sets, daily range): BP systolic 103–136; BP diastolic 48–57; PULSE 60–67; RESP 18–33; TEMP 36.6–36.7; O2SAT 89–95
[2019-05-21] MEDS: ipratropium-albuterol 3 mL Neb INHALATION ×4 (02:15→20:15)
--- NOTE | 2019-05-21 07:58 | PM.PN ---
Subjective Subjective: Interval history: No acute events overnight. Last 24 hours patient required to be put back on high flow to maintain a saturation of 90%. This morning on evaluation he is on 25 L with 40% oxygenation for saturation of 93%. He states feeling much better today. Denies of having any nausea, vomiting, headache, palpitations, cough, chest pain. labs reviewed. CT chest, abdominal pelvis were done and the results reviewed. Medications: Reviewed: Yes Vitals/I&O/Wt Last Vital Signs Temp 97.9 F 05/21/19 07:56 Pulse 60 05/21/19 07:56 Resp 28 H 05/21/19 07:56 BP 112/56 05/21/19 07:56 Pulse Ox 94 05/21/19 07:56 05/20/19 05/21/19 05/21/19 22:59 06:59 14:59 Intake Total 850 / 1210 Output Total 2750 / 2750 325 / 3075 Balance -2750 / -2390 525 / -1865 Weight last 48 hrs Weight 65 kg Weight 66.224 kg Weight 68.237 kg Physical Exam Narrative: EXAM NARRATIVE: General: No acute distress, AO x3 HEENT: PERRLA, pupils bilaterally equal and reactive Chest: Normal vesicular breath sounds, bilateral fine crackles up to mid chest, equal good air entry bilaterally CVS: S1-S2 regular, no murmurs, no tachycardia, no gallops, no rubs Abdomen: Soft, nontender, no organomegaly, bowel sounds present Neuro: No focal deficits, no facial deformity, AO x3, power 5/5 in all limbs Urinary Catheter Management^: Mantilla: Cath Placed During This Visit: no Data : 05/21/19 10:30 05/21/19 10:30 A&P Assessment and plan (1) ARDS (adult respiratory distress syndrome): Status: Acute Code(s): J80 - Acute respiratory distress syndrome (2) Acute exacerbation of CHF (congestive heart failure): Status: Acute Code(s): I50.9 - Heart failure, unspecified (3) Sepsis: Status: Acute Code(s): A41.9 - Sepsis, unspecified organism (4) Right lower lobe pneumonia: Status: Acute Code(s): J18.9 - Pneumonia, unspecified organism (5) NSTEMI (non-ST elevated myocardial infarction): Status: Acute Code(s): I21.4 - Non-ST elevation (NSTEMI) myocardial infarction (6) Peripheral vascular disease: Status: Acute Code(s): I73.9 - Peripheral vascular disease, unspecified (7) CAD (coronary artery disease): Status: Acute Code(s): I25.10 - Atherosclerotic heart disease of [place] coronary artery without angina pectoris (8) Hypertension: Status: Acute Code(s): I10 - Essential (primary) hypertension Additional A&P Information ARDS: PF ratio elevated. Most likely due to next picture of congestive heart failure along with right-sided pneumonia. Patient seems to be improving today. Oxygenation seems to be stabilized at high oxygen supplementation. Continue with aggressive diuresis with Lasix 100 mg IV twice daily. BUN is elevated today but creatinine is stable. No contraction alkalosis. We will start cutting down on diuresis from tomorrow morning. Keep saturation over 92%. Oxygen supplementation as required. BiPAP nightly. Continue with duo nebs every 6 hourly, budesonide twice daily. Low threshold for intubation. Replete potassium. Congestive heart failure: Echocardiogram suggestive of systolic dysfunction with a EF of 35% with grade 2 diastolic dysfunction with regional wall motion abnormality present. Continue with IV diuresis 80 mg every 12 hourly. Daily weights. Strict input and output charting. Overall patient is 6 L negative since admission. With around 2 L in last 24-hour. He is finally responding well to IV diuresis. We will monitor renal functions. For now stable. Morphine 1 mg every 4 hours. Will discontinue the hydromorphone to avoid somnolence or respiratory depression. Pneumonia: Repeat CT chest shows mild worsening of infiltrates. On CTA chest performed earlier in this admission, there is evidence of bilateral patchy pulmonary infiltrates which may represent multifocal pneumonia versus inflammatory process such as pneumonitis. Possibility of viral pneumonitis versus aspiration pneumonitis cannot be excluded. Continue broad-spectrum antibiotic coverage with current antibiotics. Cefepime changed to imipenem yesterday due to slow decline in white count. We will continue with vancomycin both renally dosed. Will most likely plan to do a 7-day course if patient continues to improve. Day 4/7 Empiric Levofloxacin x 3 days finish off today. Will de-escalate antibiotics as per the sputum culture results, blood culture results. MRSA negative. Urine legionella negative. Bacterial antigen panel negative. Influenza swab negative. Patient does not have any classical risk factors or immunocompromising conditions to think of pneumocystis pneumonia, though it can have similar presentation on CT chest. Elevated LDH difficult to interpret in the setting of ongoing ID. BD glucan and PCP PCR testing from induced sputum pending. Respiratory viral panel pending. Given the slow improvement and still requirement of high oxygen supplementation will get pulmonology consultation to see if patient needs bronchoscopy. NSTEMI: Patient has history of CAD and severe vasculopath. Given the 2-hour delta ACS is ruled in. Case discussed with Dr. Hutchison will like to manage medically. Continue with aspirin, Plavix, statin. We will do Lovenox full dose 1 mg/kg body weight for 5 days. Day 3/5. Lipid panel is reviewed History of VT: Continue amiodarone as patient has history of VT in the past. Patient already has ICD. Replace potassium 40 mg IV. Continue with oral potassium supplementation as well. Target potassium around 4 and magnesium around 2. Sternoclavicular joint effusion with gas raising concern for septic arthritis: Repeat CT shows stable effusion. Blood cultures remain negative for now. Most likely seroma from post CABG status. We will continue to monitor after stopping antibiotics. Patient would most likely need a repeat CT scan in 1 month after stopping of antibiotics. Sternoclavicular joint osteomyelitis is an exceedingly rare infection with incidence of approximately 1% of all infectious arthritis. This finding is unlikely to be the source of sepsis at this time unless blood cx returns with bacteremia. Due to rarity of the disease there is no great consensus about how to treat such infections, that is whether to treat conservatively with a prolonged course of antibiotics versus surgical resection and debridement of the joint. A large majority are secondary to Staphylococcus aureus infections. On examination of the chest there is no external signs of infection such as cellulitis or acute focal tenderness in the area. He does not appear to be a contiguous spread. For now given that patient has multiple ongoing issues including NSTEMI and hypoxic respiratory failure, we will concentrate our efforts towards conservative management with antibiotics. No local complications noted. Continue with Seroquel but at a lower dose. Patient takes Seroquel 50 mg in morning and 25 mg at night. Would only start at 25 mg at night. Code status: full code DVT ppx: on therapeutic lovenox Protonix for PUD prophylaxis. 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
--- NOTE | 2019-05-21 09:00 | CT_ITS ---
WS: [id number] CT CHEST, ABDOMEN, AND PELVIS TECHNIQUE: Noncontrast CT of the chest, abdomen, and pelvis with coronal and sagittal reformatted fabiano ges. CLINICAL INFORMATION: Sternoclavicular joint infection, r/o source COMPARISON: None. DLP: 1234.[address] scans at [facility] use at least one of these dose optimization techniques: automat ed exposure control; mA and/or kV adjustment per patient size (includes targeted exams where dose is matched to clinical indication); or iterative reconstruction. CT CHEST: Previously described right sternoclavicular joint with small joint effusion is unchanged in appearanc e. Aortic calcification. Coronary calcification. Normal caliber thoracic aorta. Cardiomegaly. Small b ilateral pleural effusions left greater than right. Left basilar atelectasis. Diffuse hazy groundglas s infiltrates throughout both lungs progressed in the left compared to previous. No focal consolidati on. No mediastinal or hilar lymphadenopathy. CT ABDOMEN AND PELVIS: Normal noncontrast liver. Noncontrast spleen is normal. Pancreatic fatty atrophy. Vascular calcificat ion. Mesenteric calcification. Aortic femoral bypass graft. Adrenal glands are normal. No hydronephrosis. Mantilla catheter. No evidence of small or large bowel obs truction. No free fluid in the pelvis. Cholelithiasis. CT/CT chest abd pel wo con IMPRESSION: 1. Diffuse bilateral groundglass pulmonary infiltrates progressed in the left lung since May 16, 2019. 2. Small left greater than right pleural effusions. 3. Cholelithiasis. 4. No acute findings in the abdomen or pelvis. 5. Mantilla catheter. 6. Prior aortic femoral bypass graft. 7. Dense vascular calcification including mesenteric and coronary.
[2019-05-21] MEDS: nicotine 14 mg Patch 1 PATCH TRANSDERMA (09:45)
[2019-05-21] MEDS: atorvastatin 40 mg Tablet 20 MG PO (09:45)
[2019-05-21] MEDS: pantoprazole DR 40 mg Tablet PO (09:45)
[2019-05-21] MEDS: amiodarone 200 mg Tablet PO ×2 (09:45→17:34)
[2019-05-21] MEDS: FUROsemide 10 mg/mL SDV 10mL 80 MG IVP (09:45)
[2019-05-21] MEDS: clopidogrel 75 mg Tablet PO (09:45)
[2019-05-21] MEDS: aspirin 81 mg EC Tablet PO (09:45)
[2019-05-21] MEDS: enoxaparin 80 mg/0.8 mL Syringe 70 MG SUBCUT (09:46)
[2019-05-21 10:42] LABS: Basophils % 0.1 %; Eosinophils # 0.2 10^3/uL (0.0-0.8); Eosinophils % 1.5 %; Hematocrit 35.1 % (42.0-52.0); Hemoglobin 11.4 g/dL (11.7-16.6); Lymphocytes # 0.8 10^3/uL (0.8-4.8); Lymphocytes % 5.3 %; Mean Corpuscular HGB Conc 32.5 g/dL (30.0-36.0); Mean Corpuscular Hemoglobin 27.5 pg (28.0-34.0); Mean Corpuscular Volume 84.6 fL (80-94); Monocytes # 0.4 10^3/uL (0.2-0.9); Monocytes % 2.7 %; Neutrophils # 12.7 10^3/uL (1.8-7.7); Nucleated Red Blood Cells % 0 %; Platelet Count 345 10^3/cmm (130-400); Red Blood Count 4.15 10^6/uL (4.1-5.3); Red Cell Distribution Width 15.4 % (12.1-15.1); White Blood Count 14.2 10^3/uL (4.0-10.0)
[2019-05-21 11:01] LABS: Alanine Aminotransferase 179 U/L (0-41); Albumin Level 2.4 g/dL (3.5-5.2); Alkaline Phosphatase 139 IU/L (40-130); Anion Gap 13.5 (5-19); Aspartate Amino Transferase 180 U/L (0-40); Blood Urea Nitrogen 39 mg/dL (8-23); Carbon Dioxide 29 mmol/L (22-29); Chloride 103 mmol/L (98-107); Globulin 4.4 g/dL (1.3-4.6); Glomerular Filtration Rate 83.9 mL/min (90-130); Glucose 113 mg/dL (74-106); Potassium 3.5 mmol/L (3.5-5.1); Sodium 142 mmol/L (136-145); Total Bilirubin 0.8 mg/dL (0.15-1.2); Total Protein 6.8 g/dL (6.6-8.7)
--- NOTE | 2019-05-21 14:28 | PC.SOCIAL ---
IMM updated Pg 2 of IMM was updated with patient and family and a copy was provided. They verbalized understanding and had no questions. Initialed, dated, and timed copy in chart.
[2019-05-21] MEDS: morphine 4 mg/mL SDV 1 mL 1 MG IVP (16:03)
[2019-05-21] MEDS: FUROsemide 10 mg/mL SDV 10mL 100 MG IVP (17:34)
[2019-05-21] MEDS: quetiapine 25 mg Tablet PO (17:34)
--- NOTE | 2019-05-21 18:21 | P.CONIM_ITS ---
Providers/Reason For Consult Consulting Physican/Specialty*: Pulmonology Reason for Consult*: Acute hypoxic respiratory failure Attending Physician: Dustin Chan MD Primary Care Provider: Erik Pickering APN History of Present Illness History of Present Illness Kristian Valencia is a 68 year old male who presented on May 16 with acute hypoxic respiratory failure. The patient has an extensive cardiac history including CABG and pacemaker placement. He also has peripheral vascular disease requiring above-knee right lower leg amputation. Since the patient presented to the hospital he had been diuresed very well however he still continues to require high flow nasal cannula. During the hospitalization the patient also had [address] scans[address] The latest CT scan of the chest was performed today. The CT scan of the chest today revealed bilateral diffuse groundglass opacity and evidence of early reticulation. There is a small loculated left-sided pleural effusion possibly secondary to previous CABG. Since he came into the hospital, the patient had been afebrile. All his cultures have been negative so far. I had seen and examined the patient today. The patient was accompanied by his and daughter. The history is interesting. According to the the patient started having diarrhea and nausea for 3 days. At that time the patient had multiple episodes of vomiting. Following an episode of vomiting the patient started complaining of shortness of breath on Sunday. The patient was then brought to see his primary care physician and was found to be hypoxic and subsequently brought to the hospital. During hospital admission the patient was found to have multilobar infiltrate but predominantly on the right side. He has been treated with broad-spectrum antibiotic and currently on vancomycin and imipenem. This history was confirmed from the initial history and physical as well. The patient did not have any significant fever, cough or sputum production prior to presenting to the hospital. Currently the patient has minimal cough without any significant sputu m production. The patient has been smoking 2 packs a day for a significant duration of time. The patient states that he had been diagnosed with COPD however he refuses to use any inhaler. Review of Systems Narrative: General: No fevers chills night sweats Skin: No rash HEENT: No nasal congestion, rhinitis, sinusitis, sneezing, hoarseness of voice. There is no blurred vision, double vision, redness of the eye or visual loss. Neck: There is no neck swelling, mass or swollen glands. Respiratory: Please see my HPI. Cardiovascular: No chest pain, shortness of breath, orthopnea, proximal nocturnal dyspnea, palpitation or lower extremity edema. Gastrointestinal: No abdominal pain, nausea, vomiting, melena or symptoms suggestive of GERD. Musculoskeletal: No joint pain Neurological: Patient is awake alert and oriented x3, no paralysis, gross motor function is normal. Psychiatric: No anxiety or depression. Meds/Allergies Home Medications and Allergies Home Medications Medication Instructions Recorded Confirmed Type amiodarone 200 mg PO BID 05/16/19 05/16/19 History clopidogrel [Plavix] 75 mg PO DAILY 05/16/19 05/16/19 History multivitamin,[id number] 1 tab PO DAILY 05/16/19 05/16/19 History [Complete Multivitamin] quetiapine [Seroquel] 25 mg PO QPM 05/16/19 05/16/19 History sertraline 50 mg PO DAILY 05/16/19 05/16/19 History simvastatin 10 mg PO QPM 05/16/19 05/16/19 History Allergies Allergy/AdvReac Type Severity Reaction Status Date / Time No Known Allergies Allergy Verified 05/16/19 15:10 Current Medications Current Medications Generic Name Dose Route Start Last Admin Trade Name Freq PRN Reason Stop Dose Admin Albuterol/Ipratropium 3 ml 05/20/19 15:00 05/21/19 14:08 Duoneb INHALATION 3 ml Q6H.RESPIRATORY CLAUDIA Administration Amiodarone HCl 200 mg 05/18/19 21:00 05/21/19 17:34 Cordarone PO 200 mg BID CLAUDIA Administration Aspirin 81 mg 05/18/19 09:00 05/21/19 09:45 Aspirin Ec PO 81 mg DAILY CLAUDIA Administration Atorvastatin Calcium 20 mg 05/19/19 15:00 05/21/19 09:45 Lipitor PO 20 mg DAILY CLAUDIA Administration Clopidogrel Bisulfate 75 mg 05/17/19 09:00 05/21/19 09:45 Plavix PO 75 mg DAILY CLAUDIA Administration Furosemide 100 mg 05/21/19 18:00 05/21/19 17:34 Lasix IVP 100 mg BID CLAUDIA Administration Vancomycin HCl 1,250 mg/ 250 mls @ 250 mls/hr 05/20/19 08:00 05/21/19 03:13 Sodium Chloride IV Infused Q18H CLAUDIA Infusion Protocol Imipenem/Cilastatin Sodium 250 100 mls @ 200 mls/hr 05/20/19 23:00 05/21/19 16:03 mg/ Sodium Chloride IV 200 mls/hr Q6H CLAUDIA Administration Protocol Morphine Sulfate 1 mg 05/19/19 09:30 05/21/19 16:03 Morphine IVP 1 mg Q3H PRN Administration SEVERE PAIN Nicotine 1 patch 05/19/19 20:00 05/21/19 09:45 Nicoderm 14 Mg Patch TRANSDERMA 1 patch DAILY CLAUDIA Administration Ondansetron HCl 4 mg 05/16/19 18:42 05/16/19 23:00 Zofran IVP 4 mg Q8H PRN Administration vomiting, or N/V if npo Pantoprazole Sodium 40 mg 05/20/19 09:00 05/21/19 09:45 Protonix PO 40 mg DAILY CLAUDIA Administration Potassium Chloride 40 meq 05/19/19 09:30 05/21/19 09:45 Klor-Con 10 PO 40 meq DAILY CLAUDIA Administration Quetiapine Fumarate 25 mg 05/19/19 18:00 05/21/19 17:34 Seroquel PO 25 mg QPM CLAUDIA Administration PFSH Acute PFSH: Statuses (acute, chronic, etc) shown below reflect problem list status as previously entered and may not be historically accurate Medical History Amputation above knee (Acute) History of ventricular tachycardia (Acute) Hypertension (Acute) Pacemaker (Acute) Peripheral vascular disease (Acute) Surgical History Hx of CABG (Acute) Hx of CABG (Acute) S/P femoral-popliteal bypass surgery (Acute) Social History Smoking and tobacco status: current every day smoker Vitals/I&O/Wt Last Vital Signs Temp 97.9 F 05/21/19 15:31 Pulse 65 05/21/19 15:31 Resp 18 05/21/19 16:03 BP 103/48 05/21/19 15:31 Pulse Ox 95 05/21/19 15:31 05/21/19 05/21/19 05/21/19 06:59 14:59 22:59 Intake Total 850 / 1210 100 / 100 Output Total 325 / 3075 1000 / 1000 Balance 525 / -1865 -900 / -900 Weight last 48 hrs Weight 143 lb 4.8 oz Weight 146 lb Physical Exam Narrative: EXAM NARRATIVE: General: Patient is awake alert and oriented, in no distress. Neck: No JVD, no cervical or supraclavicular lymphadenopathy. Respiratory: Inspection: No visible deformity of the chest wall, well-healed scar from previous CABG, pacemaker in the left anterior chest Palpation: Trachea is mildly deviated to the right, bilateral symmetric but reduced Percussion: Bilateral tympanic percussion note both anterior and posteriorly Auscultation: Bilateral diffuse crackles, no wheezing or rhonchi Cardiovascular: Regular rate and rhythm, S1-S2 present, no murmur, no right ventricular heave, no peripheral edema. Abdomen: Soft, nontender, nondistended, positive bowel sound. No palpable organomegaly. Musculoskeletal: Patient status post right above-knee ambulation Skin: No rash Neuro: Mental status is normal, no gross cranial nerve deficit Urinary Catheter Management^: Mantilla: Cath Placed During This Visit: no Data Labs: Other Labs: I have reviewed the patient's laboratory data. The patient has elevated BUN. His white count is coming down slowly. Micro: Micro: Microbiology 05/16/19 16:29 Blood Culture - Fi nal Blood NO GROWTH AFTER 5 DAYS 05/16/19 16:29 Blood Culture - Fi nal Blood NO GROWTH AFTER 5 DAYS Imaging^: CT Chest: My impression: I have reviewed the patient's CT scans that are obtained during the hospitalization as well as chest x-rays. patient has diffuse bilateral opacities with early reticulation. There is a small left-sided loculated pleural effusion possibly secondary to prior CABG. A&P Assessment and plan (1) ARDS (adult respiratory distress syndrome): The patient has bilateral diffuse opacity, no evidence of elevated left atrial pressure and his illness started within a week of his presentation to the hospital. He is PF ratio was less than 300. The ARDS is possibly secondary to gastric acid aspiration. The patient's history of diarrhea with nausea vomiting in the absence of any significant fever, cough or sputum production followed by development of severe shortness of breath and hypoxia with bilateral diffuse infiltrate is consistent with a diagnosis of aspiration pneumonia and ARDS. On the initial CT scan as well as the CT scan obtained today, the esophageal lumen was easily visible which is also indicative of an aspiration event. However a diagnosis of community- acquired pneumonia leading to ARDS cannot be ruled out as well. The patient is currently very well diuresed. Currently the patient is on vancomycin and imipenem. His nasal MRSA PCR is negative. I believe we can safely discontinue the vancomycin and continue him on imipenem. I was able to titrate down his FiO2 to 30%. The patient has significant history of smoking. He had been smoking 2 packs/day for many years and is an active smoker. He was told in the past that he has COPD. Given his previous lung disease, it is going to take him a while to get completely better. There is no evidence of respiratory worsening at this point. Status: Acute Code(s): J80 - Acute respiratory distress syndrome (2) Acute respiratory failure with hypoxia: The patient is currently requiring high flow nasal cannula. We will titrate down the FiO2. The patient will most likely be able to be on nasal cannula tomorrow. His oxygen saturation goal is 88% and above. Thank you for letting me participate in this patient's care. Status: Acute Code(s): J96.01 - Acute respiratory failure with hypoxia Coding Level of Care Code [facility] Diagnoses ARDS (adult respiratory distress syndrome) J80 Acute respiratory failure with hypoxia J96.01
--- NOTE | 2019-05-21 18:40 | P.PN_ITS ---
Subjective Subjective: Interval history: Patient has improved but Continue requires 5-6 L oxygen. Denies any chest pain. Medications: Reviewed: Yes Vitals/I&O/Wt Last Vital Signs Temp 97.9 F 05/21/19 15:31 Pulse 65 05/21/19 15:31 Resp 18 05/21/19 16:03 BP 103/48 05/21/19 15:31 Pulse Ox 95 05/21/19 15:31 05/21/19 05/21/19 05/21/19 06:59 14:59 22:59 Intake Total 850 / 1210 100 / 100 Output Total 325 / 3075 1000 / 1000 400 / 1400 Balance 525 / -1865 -900 / -900 -400 / -1300 Weight last 48 hrs Weight 143 lb 4.8 oz Weight 146 lb Physical Exam Narrative: EXAM NARRATIVE: GENERAL: Patient is awake and oriented. NECK: No jugular vein distension. HEENT: No cyanosis. No icterus. No pallor. HEART: Regular S1 and S2. No murmur, rub or gallop. LUNGS: Decreased breath sound bilaterally. ABDOMEN: Soft, nontender and nondistended. Positive bowel sounds. No guarding, rebound or tenderness. CENTRAL NERVOUS SYSTEM: Grossly nonfocal. EXTREMITIES: Lower extremities without edema , right side amputation Urinary Catheter Management^: Mantilla: Cath Placed During This Visit: no Data : 05/21/19 10:30 05/21/19 10:30 Micro: Microbiology 05/16/19 16:29 Blood Culture - Final Blood NO GROWTH AFTER 5 DAYS 05/16/19 16:29 Blood Culture - Final Blood NO GROWTH AFTER 5 DAYS A&P Assessment and plan (1) Acute exacerbation of CHF (congestive heart failure): . Status: Acute Code(s): I50.9 - Heart failure, unspecified (2) NSTEMI (non-ST elevated myocardial infarction): Patient has history of extensive coronary artery disease, in the presence of sepsis and demand ischemia most likely it is type II non-ST elevation PA we will continue to treat conservatively for now. Status: Acute Code(s): I21.4 - Non-ST elevation (NSTEMI) myocardial infarction (3) Peripheral vascular disease: Stable. Continue current regimen Status: Acute Code(s): I73.9 - Peripheral vascular disease, unspecified (4) Hypertension: Stable Status: Acute Code(s): I10 - Essential (primary) hypertension (5) Sepsis: As per medicine. Patient is on IV antibiotics Status: Acute Code(s): A41.9 - Sepsis, unspecified organism (6) History of ventricular tachycardia: Less likely to be amiodarone toxicity as clinically patient started improving most likely he has COPD exacerbation with Congestive heart failure. Continue IV antibiotic, continue IV Lasix and amiodarone. Status: Acute Code(s): Z86.79 - Personal history of other diseases of the circulatory system Attestations Medical Necessity Statement*: Regarding continuation hospitalization for Optimization of medicine and COPD exacerbation along with CHF treatment Coding Level of Care Code Established Pt Acute Outdoor Emergency Care Technician for [facility] Fwd Patient Type Established History Expanded Problem Focused Exam Expanded Problem Focused Medical Decision Making Moderate Complexity Diagnoses Acute exacerbation of CHF (congestive heart failure) I50.9 NSTEMI (non-ST elevated myocardial infarction) I21.4 Peripheral vascular disease I73.9 Hypertension I10 Sepsis A41.9 History of ventricular tachycardia Z86.79
[2019-05-21 20:04] LABS: Vancomycin Trough 19.8 ug/mL (10-15)
[2019-05-22] VITALS (61 sets, daily range): BP systolic 106–135; BP diastolic 35–66; PULSE 60–74; RESP 13–70; TEMP 36.6; O2SAT 79–99
[2019-05-22] MEDS: ipratropium-albuterol 3 mL Neb INHALATION ×4 (02:52→20:40)
--- NOTE | 2019-05-22 08:22 | PM.PN ---
Subjective Subjective: Interval history: Covering for Dr. Hutchison today. Kristian was admitted about a week ago on the . He was admitted with respiratory failure. The initial diagnosis was pneumonia. He was also thought to be septic. His troponin was mildly elevated. The following day was seen by cardiology. This was due to a concern with amiodarone toxicity. This was felt not to be the case. Amiodarone is in place because of his history of ventricular tachycardia. He has underlying coronary disease with an ischemic cardiomyopathy and bypass surgery. He also apparently has an ICD in place. He struggled from a pulmonary standpoint. Yesterday was seen by pulmonary medicine. It is thought the working diagnosis is ARDS influenced by a number of things. His echo shows an ejection fraction of 35% with 2+ MR. He also has transaminitis. He does have congestive heart failure and is being managed with intravenous Lasix 100 mg twice a day. He is on neither a beta-cesar nor an afterload reducing agent. I do not know the reason for this but I assume this is due to his bradycardia with heart rates in the 60s and his relatively low blood pressure. He remains on antibiotics. He still requiring high flow O2. He is awake and alert and able to carry on a conversation. According to the notes, it seems as though he is slowly improving. According to the patient, that may not necessarily be the case. His creatinine has been normal with a mild reduction in his glomerular filtration rate. He has also had glucose intolerance. His albumin is low. Medications: Reviewed: Yes Vitals/I&O/Wt Last Vital Signs Temp 97.8 F 05/22/19 07:53 Pulse 62 05/22/19 07:53 Resp 30 H 05/22/19 07:53 BP 108/35 05/22/19 07:53 Pulse Ox 97 05/22/19 07:53 05/21/19 05/22/19 05/22/19 22:59 06:59 14:59 Intake Total 400 / 500 250 / 250 Output Total 400 / 1400 300 / 1700 Balance 0 / -900 -300 / -1200 250 / 250 Weight last 48 hrs Weight 147 lb 4.8 oz Weight 143 lb 4.8 oz Physical Exam Narrative: EXAM NARRATIVE: GENERAL: In general he is relatively comfortable at rest but sitting up with a high flow O2 in place HEENT: Exam within normal limits. NECK: Supple without jugular vein distention. The carotid upstroke is normal without bruits. BACK: Exam normal. LUNGS: Decreased breath sounds, rales and rhonchi throughout HEART: Regular rate and rhythm. ABDOMEN: Benign without organomegaly or tenderness. EXTREMITIES: No edema. NEUROLOGIC: Exam normal. SKIN: Unremarkable. Urinary Catheter Management^: Mantilla: Cath Placed During This Visit: no Data : 05/21/19 10:30 05/21/19 10:30 Micro: Microbiology 05/16/19 16:29 Blood Culture - Final Blood NO GROWTH AFTER 5 DAYS 05/16/19 16:29 Blood Culture - Final Blood NO GROWTH AFTER 5 DAYS A&P Assessment and plan (1) Acute respiratory failure with hypoxia: Status: Acute Code(s): J96.01 - Acute respiratory failure with hypoxia (2) ARDS (adult respiratory distress syndrome): Status: Acute Code(s): J80 - Acute respiratory distress syndrome (3) History of ventricular tachycardia: Status: Acute Code(s): Z86.79 - Personal history of other diseases of the circulatory system (4) Acute exacerbation of CHF (congestive heart failure): Status: Acute Code(s): I50.9 - Heart failure, unspecified (5) Sepsis: Status: Acute Code(s): A41.9 - Sepsis, unspecified organism (6) Right lower lobe pneumonia: Status: Acute Code(s): J18.9 - Pneumonia, unspecified organism (7) Peripheral vascular disease: Status: Acute Code(s): I73.9 - Peripheral vascular disease, unspecified (8) CAD (coronary artery disease): Status: Acute Code(s): I25.10 - Atherosclerotic heart disease of [place] coronary artery without angina pectoris (9) Hypertension: Status: Acute Code(s): I10 - Essential (primary) hypertension (10) COPD (chronic obstructive pulmonary disease): Status: Acute Code(s): J44.9 - Chronic obstructive pulmonary disease, unspecified (11) Tobacco abuse: Status: Acute Code(s): Z72.0 - Tobacco use (12) NSTEMI (non-ST elevated myocardial infarction): Status: Acute Code(s): I21.4 - Non-ST elevation (NSTEMI) myocardial infarction (13) Essential hypertension: Status: Acute Code(s): I10 - Essential (primary) hypertension (14) Transaminitis: Status: Acute Code(s): R74.0 - Nonspecific elevation of levels of transaminase and lactic acid dehydrogenase [LDH] (15) Chronic kidney disease (CKD) stage G1/A1, glomerular filtration rate (GFR) equal to or greater than 90 mL/min/1.73 square meter and albuminuria creatinine ratio less than 30 mg/g: Status: Acute Code(s): N18.1 - Chronic kidney disease, stage 1 (16) Ischemic cardiomyopathy: Status: Acute Code(s): I25.5 - Ischemic cardiomyopathy (17) Glucose intolerance: Status: Acute Code(s): E74.39 - Other disorders of intestinal carbohydrate absorption (18) Hypoalbuminemia: Status: Acute Code(s): E88.09 - Other disorders of plasma-protein metabolism, not elsewhere classified Additional A&P Information Today we will switch him over to Lasix by mouth. I will see how he does over the next day or so before trying to add back a beta-cesar and afterload reducing agent. For now we will continue the amiodarone. He seems to be relatively well compensated with respect to the heart failure. Attestations Medical Necessity Statement*: Not applicable Time Spent in Patient Care: Greater than 35 minutes Coding Level of Care Code Acute [employer] Laboratory Director for Chg Fwd History Comprehensive Exam Comprehensive Medical Decision Making High Complexity Diagnoses Acute respiratory failure with hypoxia J96.01 ARDS (adult respiratory distress syndrome) J80 History of ventricular tachycardia Z86.79 Acute exacerbation of CHF (congestive heart failure) I50.9 Sepsis A41.9 Right lower lobe pneumonia J18.9 Peripheral vascular disease I73.9 CAD (coronary artery disease) I25.10 Hypertension I10 COPD (chronic obstructive pulmonary disease) J44.9 Tobacco abuse Z72.0 NSTEMI (non-ST elevated myocardial infarction) I21.4 Essential hypertension I10 Transaminitis R74.0 Chronic kidney disease (CKD) stage G1/A1, glomerular filtration rate (GFR) equal to or greater than 90 mL/min/1.73 square meter and albuminuria creatinine ratio less than 30 mg/g N18.1 Ischemic cardiomyopathy I25.5 Glucose intolerance E74.39 Hypoalbuminemia E88.09 Time Spent (min) 75
[2019-05-22] MEDS: enoxaparin 40 mg/0.4 mL Syringe SUBCUT (10:14)
[2019-05-22] MEDS: atorvastatin 40 mg Tablet 20 MG PO (10:15)
[2019-05-22] MEDS: aspirin 81 mg EC Tablet PO (10:15)
[2019-05-22] MEDS: clopidogrel 75 mg Tablet PO (10:15)
[2019-05-22] MEDS: nicotine 14 mg Patch 1 PATCH TRANSDERMA (10:15)
[2019-05-22] MEDS: amiodarone 200 mg Tablet PO ×2 (10:16→17:55)
[2019-05-22] MEDS: pantoprazole DR 40 mg Tablet PO (10:16)
[2019-05-22] MEDS: FUROsemide 10 mg/mL SDV 10mL 100 MG IVP (11:51)
--- NOTE | 2019-05-22 14:45 | P.PN_ITS ---
Subjective Subjective: Interval history: No acute events overnight. This morning on evaluation lying comfortably in bed. Saturating 96% on 4 L nasal cannula and appears comfortable. He states feeling much better today. Denies of having any nausea, vomiting, headache, palpitations, cough, chest pain. labs reviewed. CT chest, abdominal pelvis were done and the results reviewed. Medications: Reviewed: Yes Vitals/I&O/Wt Last Vital Signs Temp 97.8 F 05/22/19 07:53 Pulse 60 05/22/19 13:30 Resp 25 H 05/22/19 13:30 BP 128/58 05/22/19 13:30 Pulse Ox 93 05/22/19 13:30 05/21/19 05/22/19 05/22/19 22:59 06:59 14:59 Intake Total 400 / 500 100 / 600 490 / 490 Output Total 400 / 1400 300 / 1700 Balance 0 / -900 -200 / -1100 490 / 490 Weight last 48 hrs Weight 66.814 kg Weight 65 kg Physical Exam Narrative: EXAM NARRATIVE: General: No acute distress, AO x3 HEENT: PERRLA, pupils bilaterally equal and reactive Chest: Normal vesicular breath sounds, bilateral fine crackles up to mid chest, equal good air entry bilaterally CVS: S1-S2 regular, no murmurs, no tachycardia, no gallops, no rubs Abdomen: Soft, nontender, no organomegaly, bowel sounds present Neuro: No focal deficits, no facial deformity, AO x3, power 5/5 in all limbs Urinary Catheter Management^: Mantilla: Cath Placed During This Visit: no Data : 05/21/19 10:30 05/21/19 10:30 Micro: Microbiology 05/16/19 16:29 Blood Culture - Final Blood NO GROWTH AFTER 5 DAYS 05/16/19 16:29 Blood Culture - Final Blood NO GROWTH AFTER 5 DAYS A&P Assessment and plan (1) ARDS (adult respiratory distress syndrome): Status: Acute Code(s): J80 - Acute respiratory distress syndrome (2) Viral pneumonitis: Status: Acute Code(s): J12.9 - Viral pneumonia, unspecified (3) Acute exacerbation of CHF (congestive heart failure): Status: Acute Code(s): I50.9 - Heart failure, unspecified (4) Sepsis: Status: Acute Code(s): A41.9 - Sepsis, unspecified organism (5) Right lower lobe pneumonia: Status: Acute Code(s): J18.9 - Pneumonia, unspecified organism (6) NSTEMI (non-ST elevated myocardial infarction): Status: Acute Code(s): I21.4 - Non-ST elevation (NSTEMI) myocardial infarction (7) Peripheral vascular disease: Status: Acute Code(s): I73.9 - Peripheral vascular disease, unspecified (8) CAD (coronary artery disease): Status: Acute Code(s): I25.10 - Atherosclerotic heart disease of [place] coronary artery without angina pectoris (9) Hypertension: Status: Acute Code(s): I10 - Essential (primary) hypertension Additional A&P Information Given lab holiday today. ARDS: PF ratio elevated. Most likely due to next picture of congestive heart failure along with right-sided pneumonia. Patient seems to be improving today. Oxygenating better today. Continue with aggressive diuresis with Lasix 100 mg IV for morning and plan to change to oral 60 mg twice daily from today evening. BUN is elevated today but creatinine is stable. No contraction alkalosis. We will start cutting down on diuresis from tomorrow morning. Keep saturation over 92%. Oxygen supplementation as required. BiPAP nightly. Continue with duo nebs every 6 hourly, budesonide twice daily. Low threshold for intubation. Congestive heart failure: Echocardiogram suggestive of systolic dysfunction with a EF of 35% with grade 2 diastolic dysfunction with regional wall motion abnormality present. Continue diuresis as stated above. Daily weights. Strict input and output charting. Overall patient is 5 L negative since admission. With around 2 L in last 24- hour. He is finally responding well to IV diuresis. We will monitor renal functions. For now stable. Morphine 1 mg every 4 hours. Pneumonia versus aspiration pneumonitis: As per micro lab respiratory viral panel positive for human adult RSV. Droplet precautions Repeat CT chest shows mild worsening of infiltrates. On CTA chest performed earlier in this admission, there is evidence of bilateral patchy pulmonary infiltrates which may represent multifocal pneumonia versus inflammatory process such as pneumonitis. Continue broad-spectrum antibiotic coverage with current antibiotics as superadded infection cannot be excluded given no good sputum sample. Cefepime changed to imipenem yesterday due to slow decline in white count. We will continue with vancomycin both renally dosed. Will most likely plan to do a 7-day course if patient continues to improve. Day 5/7 Empiric Levofloxacin x 3 days finish off today. MRSA negative. Urine legionella negative. Bacterial antigen panel negative. Influenza swab negative. Patient does not have any classical risk factors or immunocompromising conditions to think of pneumocystis pneumonia, though it can have similar presentation on CT chest. Elevated LDH difficult to interpret in the setting of ongoing FL. BD glucan and PCP PCR testing from induced sputum pending. Respiratory viral panel pending. Given the slow improvement and still requirement of high oxygen supplementation will get pulmonology consultation to see if patient needs bronchoscopy. NSTEMI: Patient has history of CAD and severe vasculopath. Given the 2-hour delta ACS is ruled in. Case discussed with Dr. Hutchison will like to manage medically. Continue with aspirin, Plavix, statin. Completed the course of full dose Lovenox. History of VT: Continue amiodarone as patient has history of VT in the past. Patient already has ICD. Replace potassium 40 mg IV. Continue with oral potassium supplementation as well. Target potassium around 4 and magnesium around 2. Sternoclavicular joint effusion with gas raising concern for septic arthritis: Repeat CT shows stable effusion. Blood cultures remain negative for now. Most likely seroma from post CABG status. We will continue to monitor after stopping antibiotics. Patient would most likely need a repeat CT scan in 1 month after stopping of antibiotics. Continue with Seroquel but at a lower dose. Patient takes Seroquel 50 mg in morning and 25 mg at night. Would only start at 25 mg at night. Code status: full code DVT ppx: on therapeutic lovenox Protonix for PUD prophylaxis. Attestations Medical Necessity Statement*: Needs continued hospitalization for management of congestive heart failure and pneumonitis. Time Spent in Patient Care: Greater than 35 minutes Coding Level of Care Code Acute Bulking Machine Operator for [facility] Fwd Diagnoses ARDS (adult respiratory distress syndrome) J80 Viral pneumonitis J12.9 Acute exacerbation of CHF (congestive heart failure) I50.9 Sepsis A41.9 Right lower lobe pneumonia J18.9 NSTEMI (non-ST elevated myocardial infarction) I21.4 Peripheral vascular disease I73.9 CAD (coronary artery disease) I25.10 Hypertension I10
[2019-05-22] MEDS: FUROsemide 40 mg Tablet PO (15:50)
--- NOTE | 2019-05-22 16:13 | PC.NURSE ---
PATIENT PLACED ON DROPLET ISOLATION PER DR ASCENCIO FOR RSV.
[2019-05-22] MEDS: quetiapine 25 mg Tablet PO (17:55)
[2019-05-22] MEDS: ondansetron 2 mg/ML SDV 2 mL 4 MG IVP (21:04)
[2019-05-23] VITALS (13 sets, daily range): BP systolic 114–136; BP diastolic 50–59; PULSE 60–77; RESP 12–29; TEMP 36.5–36.8; O2SAT 92–100
[2019-05-23] MEDS: ipratropium-albuterol 3 mL Neb INHALATION ×3 (02:25→20:43)
[2019-05-23] MEDS: FUROsemide 40 mg Tablet PO ×2 (09:59→15:59)
[2019-05-23] MEDS: pantoprazole DR 40 mg Tablet PO (09:59)
[2019-05-23] MEDS: atorvastatin 40 mg Tablet 20 MG PO (09:59)
[2019-05-23] MEDS: nicotine 14 mg Patch 1 PATCH TRANSDERMA (10:00)
[2019-05-23] MEDS: clopidogrel 75 mg Tablet PO (10:00)
[2019-05-23] MEDS: aspirin 81 mg EC Tablet PO (10:00)
[2019-05-23] MEDS: amiodarone 200 mg Tablet PO ×2 (10:00→18:12)
[2019-05-23] MEDS: enoxaparin 40 mg/0.4 mL Syringe SUBCUT (10:01)
--- NOTE | 2019-05-23 10:15 | PC.SOCIAL ---
IMM update Pg 2 of IMM was updated with patient and copy was provided He verbalized understanding and had no questions. Initialed, dated, and timed copy in chart.
--- NOTE | 2019-05-23 11:37 | PC.NURSE ---
CRITICAL LABS CALLED ; LAB CALLED BACK AND STATED THAT AFTER LOOKING AT THE OTHER LABS, THEY WERE GOING TO REDRAW THE LABS
[2019-05-23 14:00] LABS: Alanine Aminotransferase 209 U/L (0-41); Albumin Level 2.1 g/dL (3.5-5.2); Alkaline Phosphatase 152 IU/L (40-130); Anion Gap 11.5 (5-19); Aspartate Amino Transferase 201 U/L (0-40); Blood Urea Nitrogen 31 mg/dL (8-23); Calcium 8.8 mg/dL (8.5-10.5); Carbon Dioxide 29 mmol/L (22-29); Chloride 102 mmol/L (98-107); Globulin 4.4 g/dL (1.3-4.6); Glomerular Filtration Rate 96.1 mL/min (90-130); Glucose 110 mg/dL (74-106); Potassium 4.5 mmol/L (3.5-5.1); Sodium 138 mmol/L (136-145); Total Bilirubin 0.5 mg/dL (0.15-1.2); Total Protein 6.5 g/dL (6.6-8.7)
[2019-05-23 14:36] LABS: ABG PCO2 39.5 mmHg (35-45); ABG PH Result 7.47 (7.35-7.45); Arterial Blood Gas Hematocrit 34.6 % (42-52); Blood Gas Operator Identificat amh; Blood Gas Sample Site Brachial, right; Blood Gas Sample Type Arterial; Oxygen Device NC; PO2 ABG 41.5 mmHg (80.0-100.0)
--- NOTE | 2019-05-23 15:41 | P.PN_ITS ---
Subjective Subjective: Interval history: Kristian is up in a chair today. He is on nasal prongs. He seems to be feeling better. He is still weak however. Blood pressures have come up and are now running around 115/60. His heart rate is still in the 60s however. Medications: Reviewed: Yes Vitals/I&O/Wt Last Vital Signs Temp 97.8 F 05/23/19 15:29 Pulse 66 05/23/19 15:29 Resp 23 H 05/23/19 15:29 BP 114/53 05/23/19 15:29 Pulse Ox 97 05/23/19 15:29 05/23/19 05/23/19 05/23/19 06:59 14:59 22:59 Intake Total 250 / 1430 580 / 580 Output Total 900 / 2200 650 / 650 Balance -650 / -770 580 / 580 -650 / -70 Weight last 48 hrs Weight 151 lb 9.6 oz Weight 147 lb 4.8 oz Physical Exam Narrative: EXAM NARRATIVE: GENERAL: In general he is comfortable sitting upright and in no distress HEENT: Exam within normal limits. NECK: Supple without jugular vein distention. The carotid upstroke is normal without bruits. BACK: Exam normal. LUNGS: Decreased breath sounds with bilateral wheezes and occasional rales HEART: Regular rate and rhythm. ABDOMEN: Benign without organomegaly or tenderness. EXTREMITIES: No edema. Right [id number] amputation NEUROLOGIC: Exam normal. SKIN: Unremarkable. Urinary Catheter Management^: Mantilla: Cath Placed During This Visit: no Data : 05/21/19 10:30 05/23/19 13:36 A&P Assessment and plan (1) Hypoalbuminemia: Status: Acute Code(s): E88.09 - Other disorders of plasma-protein metabolism, not elsewhere classified (2) Glucose intolerance: Status: Acute Code(s): E74.39 - Other disorders of intestinal carbohydrate absorption (3) Ischemic cardiomyopathy: Status: Acute Code(s): I25.5 - Ischemic cardiomyopathy (4) Chronic kidney disease (CKD) stage G1/A1, glomerular filtration rate (GFR) equal to or greater than 90 mL/min/1.73 square meter and albuminuria creatinine ratio less than 30 mg/g: Status: Acute Code(s): N18.1 - Chronic kidney disease, stage 1 (5) Transaminitis: Status: Acute Code(s): R74.0 - Nonspecific elevation of levels of transaminase and lactic acid dehyd rogenase [LDH] (6) Essential hypertension: Status: Acute Code(s): I10 - Essential (primary) hypertension (7) Tobacco abuse: Status: Acute Code(s): Z72.0 - Tobacco use (8) COPD (chronic obstructive pulmonary disease): Status: Acute Code(s): J44.9 - Chronic obstructive pulmonary disease, unspecified (9) Acute respiratory failure with hypoxia: Status: Acute Code(s): J96.01 - Acute respiratory failure with hypoxia (10) ARDS (adult respiratory distress syndrome): Status: Acute Code(s): J80 - Acute respiratory distress syndrome (11) History of ventricular tachycardia: Status: Acute Code(s): Z86.79 - Personal history of other diseases of the circulatory system (12) Acute exacerbation of CHF (congestive heart failure): Status: Acute Code(s): I50.9 - Heart failure, unspecified (13) Sepsis: Status: Acute Code(s): A41.9 - Sepsis, unspecified organism (14) NSTEMI (non-ST elevated myocardial infarction): Status: Acute Code(s): I21.4 - Non-ST elevation (NSTEMI) myocardial infarction (15) Right lower lobe pneumonia: Status: Acute Code(s): J18.9 - Pneumonia, unspecified organism (16) Peripheral vascular disease: Status: Acute Code(s): I73.9 - Peripheral vascular disease, unspecified (17) CAD (coronary artery disease): Status: Acute Code(s): I25.10 - Atherosclerotic heart disease of [place] coronary artery without angina pectoris (18) Hypertension: Status: Acute Code(s): I10 - Essential (primary) hypertension (19) ICD (implantable cardioverter-defibrillator) in place: Status: Acute Code(s): Z95.810 - Presence of automatic (implantable) cardiac defibrillator Additional A&P Information He is very slowly getting better. He continues with aspirin, Plavix, amiodarone , potassium, statin, antibiotics and I switched him to Lasix by mouth yesterday. Today I will add back very low-dose lisinopril for afterload reduction. I have not started him on a beta-cesar because of his relatively low heart rate at baseline. He continues to slowly improve. Attestations Medical Necessity Statement*: Not applicable Coding Level of Care Code Acute Sidewalk Inspector for Chg Fwd History Comprehensive Exam Comprehensive Medical Decision Making High Complexity Diagnoses Hypoalbuminemia E88.09 Glucose intolerance E74.39 Ischemic cardiomyopathy I25.5 Chronic kidney disease (CKD) stage G1/A1, glomerular filtration rate (GFR) equal to or greater than 90 mL/min/1.73 square meter and albuminuria creatinine ratio less than 30 mg/g N18.1 Transaminitis R74.0 Essential hypertension I10 Tobacco abuse Z72.0 COPD (chronic obstructive pulmonary disease) J44.9 Acute respiratory failure with hypoxia J96.01 ARDS (adult respiratory distress syndrome) J80 History of ventricular tachycardia Z86.79 Acute exacerbation of CHF (congestive heart failure) I50.9 Sepsis A41.9 NSTEMI (non-ST elevated myocardial infarction) I21.4 Right lower lobe pneumonia J18.9 Peripheral vascular disease I73.9 CAD (coronary artery disease) I25.10 Hypertension I10 ICD (implantable cardioverter-defibrillator) in place Z95.810 Time Spent (min) 45
--- NOTE | 2019-05-23 15:43 | PM.PN ---
Subjective Subjective: Interval history: No acute events overnight. This morning on evaluation lying comfortably in bed. Saturating 96% on 3 L L nasal cannula and appears comfortable. He states feeling much better today. Denies of having any nausea, vomiting, headache, palpitations, cough, chest pain. Medications: Reviewed: Yes Vitals/I&O/Wt Last Vital Signs Temp 97.8 F 05/23/19 15:29 Pulse 66 05/23/19 15:29 Resp 23 H 05/23/19 15:29 BP 114/53 05/23/19 15:29 Pulse Ox 97 05/23/19 15:29 05/23/19 05/23/19 05/23/19 06:59 14:59 22:59 Intake Total 250 / 1430 580 / 580 Output Total 900 / 2200 650 / 650 Balance -650 / -770 580 / 580 -650 / -70 Weight last 48 hrs Weight 68.765 kg Weight 66.814 kg Physical Exam Narrative: EXAM NARRATIVE: General: No acute distress, AO x3 HEENT: PERRLA, pupils bilaterally equal and reactive Chest: Normal vesicular breath sounds, bilateral fine crackles lower zones, equal good air entry bilaterally CVS: S1-S2 regular, no murmurs, no tachycardia, no gallops, no rubs Abdomen: Soft, nontender, no organomegaly, bowel sounds present Neuro: No focal deficits, no facial deformity, AO x3, power 5/5 in all limbs Urinary Catheter Management^: Mantilla: Cath Placed During This Visit: no Data : 05/21/19 10:30 05/23/19 13:36 A&P Assessment and plan (1) ARDS (adult respiratory distress syndrome): Status: Acute Code(s): J80 - Acute respiratory distress syndrome (2) Viral pneumonitis: Status: Acute Code(s): J12.9 - Viral pneumonia, unspecified (3) Acute exacerbation of CHF (congestive heart failure): Status: Acute Code(s): I50.9 - Heart failure, unspecified (4) Sepsis: Status: Acute Code(s): A41.9 - Sepsis, unspecified organism (5) Right lower lobe pneumonia: Status: Acute Code(s): J18.9 - Pneumonia, unspecified organism (6) NSTEMI (non-ST elevated myocardial infarction): Status: Acute Code(s): I21.4 - Non-ST elevation (NSTEMI) myocardial infarction (7) Peripheral vascular disease: Status: Acute Code(s): I73.9 - Peripheral vascular disease, unspecified (8) CAD (coronary artery disease): Status: Acute Code(s): I25.10 - Atherosclerotic heart disease of [place] coronary artery without angina pectoris (9) Hypertension: Status: Acute Code(s): I10 - Essential (primary) hypertension Additional A&P Information ARDS: Resolved. PF ratio elevated. Most likely due to next picture of congestive heart failure along with right-sided pneumonia. Patient seems to be improving today. Oxygenating better today. Patient is doing a lot better now. His oxygen requirement has improved remarkably. Lasix has been changed to oral at 40 mg twice daily. Keep saturation over 92%. Oxygen supplementation as required. BiPAP nightly. Continue with duo nebs every 6 hourly, budesonide twice daily. Congestive heart failure: Echocardiogram suggestive of systolic dysfunction with a EF of 35% with grade 2 diastolic dysfunction with regional wall motion abnormality present. Continue diuresis as stated above. Daily weights. Strict input and output charting. Overall patient is 6.5 L negative since admission. With around 2 L in last 24-hour. He is finally responding well to IV diuresis. We will monitor renal functions. For now stable. Morphine 1 mg every 4 hours. Pneumonia versus aspiration pneumonitis: As per micro lab respiratory viral panel positive for human adult RSV. Droplet precautions for overall 7 days. Today is day [address] chest shows mild worsening of infiltrates. On CTA chest performed earlier in this admission, there is evidence of bilateral patchy pulmonary infiltrates which may represent multifocal pneumonia versus inflammatory process such as pneumonitis. Continue broad-spectrum antibiotic coverage with current antibiotics as superadded infection cannot be excluded given no good sputum sample. Cefepime changed to imipenem yesterday due to slow decline in white count. We will continue with vancomycin both renally dosed. Will most likely plan to do a 7-day course if patient continues to improve. Day 6/7 Empiric Levofloxacin x 3 days finish off today. MRSA negative. Urine legionella negative. Bacterial antigen panel negative. Influenza swab negative. Pulmonology and cardiology recommendations appreciated. NSTEMI: Patient has history of CAD and severe vasculopath. Given the 2-hour delta ACS is ruled in. Case discussed with Dr. Hutchison will like to manage medically. Continue with aspirin, Plavix, statin. Completed the course of full dose Lovenox. History of VT: Continue amiodarone as patient has history of VT in the past. Patient already has ICD. Patient's heart rate has remained in 60s. Right now does not have much room to add any beta blockade. Will see cardiology recommendations for same. Continue with oral potassium supplementation as well. Target potassium around 4 and magnesium around 2. Sternoclavicular joint effusion with gas raising concern for septic arthritis: Repeat CT shows stable effusion. Blood cultures remain negative for now. Most likely seroma from post CABG status. We will continue to monitor after stopping antibiotics. Patient would most likely need a repeat CT scan in 1 month after stopping of antibiotics. Continue with Seroquel but at a lower dose. Patient takes Seroquel 50 mg in morning and 25 mg at night. Would only start at 25 mg at night. Code status: full code DVT ppx: on therapeutic lovenox Protonix for PUD prophylaxis. Patient should be close to discharge in the next day or 2. Dispo: Patient has been accepted at [facility] for rehabilitation. Preauthorization is pending. Attestations Medical Necessity Statement*: Needs further hospitalization for resolving ARDS. Time Spent in Patient Care: 16 - 35 minutes Coding Level of Care Code Acute Still Operator Batch Or Continuous for [facility] Zenaida Diagnoses ARDS (adult respiratory distress syndrome) J80 Viral pneumonitis J12.9 Acute exacerbation of CHF (congestive heart failure) I50.9 Sepsis A41.9 Right lower lobe pneumonia J18.9 NSTEMI (non-ST elevated myocardial infarction) I21.4 Peripheral vascular disease I73.9 CAD (coronary artery disease) I25.10 Hypertension I10
--- NOTE | 2019-05-23 16:47 | PC.NURSE ---
PATIENT AND GIVEN DISCHARGE INSTRUCTIONS AND VERBALIZED UNDERSTANDING ; IV REMOVED AND PRESSURE DRESSING APPLIED WITH NO BLEEDING NOTED ; VSS ; PATIENT DENIES ANY CHEST DISCOMFORT OR INCREASE IN SOB AT THIS TIME ; PATIENT TO EXIT VIA WHEELCHAIR WITH O2 TP POV WITH NO ISSUES
[2019-05-23] MEDS: quetiapine 25 mg Tablet PO (18:12)
[2019-05-23 20:02] LABS: Basophils # 0.1 10^3/uL (0.0-0.1); Basophils % 0.3 %; Eosinophils # 0.8 10^3/uL (0.0-0.8); Eosinophils % 3.9 %; Hematocrit 37.9 % (42.0-52.0); Hemoglobin 12.2 g/dL (11.7-16.6); Lymphocytes % 4.8 %; Mean Corpuscular HGB Conc 32.2 g/dL (30.0-36.0); Mean Corpuscular Hemoglobin 26.9 pg (28.0-34.0); Mean Corpuscular Volume 83.5 fL (80-94); Mean Platelet Volume 9.8 fL (7.4-10.4); Monocytes # 0.8 10^3/uL (0.2-0.9); Neutrophils # 16.7 10^3/uL (1.8-7.7); Neutrophils % 80.9 %; Nucleated Red Blood Cells % 0 %; Platelet Count 390 10^3/cmm (130-400); Red Blood Count 4.54 10^6/uL (4.1-5.3); Red Cell Distribution Width 15.8 % (12.1-15.1); White Blood Count 20.6 10^3/uL (4.0-10.0)
[2019-05-23 20:56] LABS: Slide Review Slide Review Perform
[2019-05-23 20:58] LABS: Absolute Eosinophils 0.8 10^3/cmm (0.0-0.7); Absolute Segmented Neutrophil 18.1 10/cmm (1.6-7.1); Eosinophils 4 %; Lymphocytes 5 %; Segmented Neutrophils 88 %; Total Cells Counted 100 (0-100)
[2019-05-23 20:59] LABS: Platelet Estimate Normal (Normal)
[2019-05-23 23:33] LABS: LAB Peripheral Smear Sent for Review
[2019-05-24] VITALS (12 sets, daily range): BP systolic 107–127; BP diastolic 45–53; PULSE 60–77; RESP 18–36; TEMP 36.5–36.6; O2SAT 90–98; BMI 24.2
[2019-05-24] MEDS: ipratropium-albuterol 3 mL Neb INHALATION ×3 (02:50→14:43)
[2019-05-24 05:11] LABS: Basophils % 0.2 %; Eosinophils % 0.3 %; Hematocrit 38.4 % (42.0-52.0); Hemoglobin 11.8 g/dL (11.7-16.6); Lymphocytes # 1.9 10^3/uL (0.8-4.8); Lymphocytes % 30.6 %; Mean Corpuscular HGB Conc 30.7 g/dL (30.0-36.0); Mean Corpuscular Hemoglobin 29.9 pg (28.0-34.0); Mean Corpuscular Volume 97.2 fL (80-94); Mean Platelet Volume 11.6 fL (7.4-10.4); Monocytes # 0.5 10^3/uL (0.2-0.9); Monocytes % 8.6 %; Neutrophils # 3.6 10^3/uL (1.8-7.7); Neutrophils % 59.2 %; Nucleated Red Blood Cells % 0 %; Platelet Count 194 10^3/cmm (130-400); Red Blood Count 3.95 10^6/uL (4.1-5.3); White Blood Count 6.2 10^3/uL (4.0-10.0)
[2019-05-24 05:29] LABS: Alanine Aminotransferase 28 U/L (0-41); Albumin Level 3.7 g/dL (3.5-5.2); Alkaline Phosphatase 67 IU/L (40-130); Anion Gap 16.7 (5-19); Aspartate Amino Transferase 24 U/L (0-40); Blood Urea Nitrogen 28 mg/dL (8-23); Calcium 9.7 mg/dL (8.5-10.5); Carbon Dioxide 27 mmol/L (22-29); Chloride 98 mmol/L (98-107); Globulin 3.8 g/dL (1.3-4.6); Glomerular Filtration Rate 74.3 mL/min (90-130); Glucose 208 mg/dL (74-106); Potassium 3.7 mmol/L (3.5-5.1); Sodium 138 mmol/L (136-145); Total Bilirubin 0.7 mg/dL (0.15-1.2); Total Protein 7.5 g/dL (6.6-8.7)
[2019-05-24] MEDS: FUROsemide 40 mg Tablet PO (08:13)
[2019-05-24] MEDS: nicotine 14 mg Patch 1 PATCH TRANSDERMA (09:32)
[2019-05-24] MEDS: lisinopril 2.5 mg Tablet PO (09:36)
[2019-05-24] MEDS: clopidogrel 75 mg Tablet PO (09:36)
[2019-05-24] MEDS: amiodarone 200 mg Tablet PO (09:36)
[2019-05-24] MEDS: atorvastatin 40 mg Tablet 20 MG PO (09:37)
[2019-05-24] MEDS: pantoprazole DR 40 mg Tablet PO (09:37)
[2019-05-24] MEDS: aspirin 81 mg EC Tablet PO (09:38)
[2019-05-24] MEDS: enoxaparin 40 mg/0.4 mL Syringe SUBCUT (09:38)
--- NOTE | 2019-05-24 18:32 | PM.DCS ---
Discharge Providers Date of Admission: 05/16/19 21:02 Date of Discharge: Date of Discharge: May 24, 2019 Attending Provider at Admission: Sury Dorsey MD Attending Provider at Discharge: Vimal Chino MD Primary Care Provider: Erik Pickering APN Diagnoses at Discharge Discharge Diagnosis (1) ARDS (adult respiratory distress syndrome): Status: Acute (2) Viral pneumonitis: Status: Acute (3) Acute exacerbation of CHF (congestive heart failure): Status: Acute (4) Sepsis: Status: Acute (5) Right lower lobe pneumonia: Status: Acute (6) NSTEMI (non-ST elevated myocardial infarction): Status: Acute (7) Peripheral vascular disease: Status: Acute Problem details: Status post femoral-popliteal bypass (8) CAD (coronary artery disease): Status: Acute (9) Hypertension: Status: Acute (10) History of ventricular tachycardia: Status: Acute (11) Acute respiratory failure with hypoxia: Status: Acute (12) COPD (chronic obstructive pulmonary disease): Status: Acute (13) Tobacco abuse: Status: Acute (14) Essential hypertension: Status: Acute (15) Transaminitis: Status: Acute (16) Chronic kidney disease (CKD) stage G1/A1, glomerular filtration rate (GFR) equal to or greater than 90 mL/min/1.73 square meter and albuminuria creatinine ratio less than 30 mg/g: Status: Acute (17) Ischemic cardiomyopathy: Status: Acute (18) Glucose intolerance: Status: Acute (19) Hypoalbuminemia: Status: Acute (20) ICD (implantable cardioverter-defibrillator) in place: Status: Acute Reason for Visit Reason for Visit: Reason For Visit: oxygen is low, heart pt Hospital Course Hospital Course: Kristian Valencia is a 68 year old male with PMH notable for CAD s/p CABG in 1980s, severe peripheral vascular disease requiring R leg amputation after several failed bypass attempts (Jan 2019) and procedures to the remaining left leg in the past. Presented to the emergency room due to complaints of feeling unwell, diarrhea, shortness of breath. Patient was admitted for acute respiratory failure secondary to right-sided pneumonia, RSV, CHF, and acute respiratory distress syndrome. He received broad-spectrum antibiotics, IV diuresis, oxygen therapy, patient clinically improved, patient was discharged to the detention. Patient has over [id number] history of smoking, was discharged on albuterol, and Advair. We will require PFTs and a follow-up with Dr. Tejada in 1 month For his acute respiratory distress syndrome, PF ratio elevated, secondary to right-sided pneumonia heart failure, clinically doing well, discharged on oxygen therapy with close follow-up with primary care For his congestive heart failure, EF of 35% with grade 2 diastolic dysfunction, discharged with Lasix 40 twice daily, low-dose lisinopril For his pneumonia and RSV, he was discharged with 7 remaining days of doxycycline, he had 7 days of droplet precautions with RSV which he completed as inpatient Patient had NSTEMI, during his admission, cardiology was consulted, patient was discharged on aspirin, Plavix, statin statin, with a follow-up with cardiology as outpatient For his history of VT's, he was discharged on his home amiodarone Patient was found to have an incidental sternoclavicular joint effusion concerning for possible septic arthritis, patient was asymptomatic, most likely a seroma from CABG, patient was advised to repeat CT scan in 1 month Physical Exam Const: COMMON NORMALS: no apparent distress and oriented x3 GENERAL APPEARANCE: cooperative and comfortable HENMT: COMMON NORMALS: normocephalic HEAD & SCALP: normocephalic Neck/C-Spine: COMMON NORMALS: no JVD Lymph: LYMPHATIC: no lymphadenopathy noted Resp: COMMON NORMALS: normal respiratory effort, no retractions, no use of accessory muscles and clear to auscultation bilaterally AUSCULTATION: clear to auscultation bilaterally Cardio: COMMON NORMALS: no JVD, regular rate, regular rhythm, S1 normal heart sound, S2 normal heart sound, no gallops, no clicks and no murmurs RATE: regular rate RHYTHM: regular rhythm HEART SOUNDS: S1 normal and S2 normal GI: COMMON NORMALS: normal to inspection, nondistended, normoactive bowel sounds, soft to palpation, non-tender and no hepatosplenomegaly PALPATION: Yes soft and Yes no hepatosplenomegaly Extremity: COMMON NORMALS: normal to inspection, full ROM and no pedal edema Neuro: COMMON NORMALS: oriented x3 Psych: COMMON NORMALS: mental status grossly normal, thought process normal and cooperative THOUGHT PROCESS: normal thought process Urinary Catheter Management^: Mantilla: Cath Placed During This Visit: no Discharge Data Data Completed and Pending: Completed Studies During Hospitalization Category Date Time Status CT angio chest PE protcl [id number] Urge nt Cat Scan 05/16/19 18:[address] chest abd pel wo con Routine Cat Scan 05/21/19 09:00 Completed XR chest 1V otoniel ble [id number] Routine Exams 05/18/19 09:35 Completed XR chest 1V otoniel ble [id number] Routine Exams 05/20/19 06:00 Completed XR chest 1V otoniel ble [id number] Stat Exams 05/16/19 14:58 Completed XR femur RT min 2 V* [id number] Routine Exams 05/17/19 11:06 Completed CV echo complete* [id number] Routine Ultrasound 05/16/19 18:42 [place] [id number] Routin e Ultrasound 05/17/19 11:06 Completed Pending at discharge Category Date Time Status Miscellaneous Dennise t Routine Lab 05/18/19 10:48 Received Miscellaneous Dennise t Stat Lab 05/21/19 03:45 Received Respiratory Viral Panel PCR Routine Lab 05/17/19 Received Labs from last 24 hours 05/24/19 05/24/19 05/23/19 04:30 04:30 19:44 WBC 6.2 20.6 H RBC 3.95 L 4.54 Hgb 11.8 12.2 Hct 38.4 L 37.9 L MCV 97.2 H D 83.5 MCH 29.9 D 26.9 L MCHC 30.7 32.2 RDW 14.0 15.8 H Plt Count 194 390 MPV 11.6 H 9.8 Neut % (Auto) 59.2 80.9 Lymph % (Auto) 30.6 4.8 [place] % (Auto) 8.6 4.0 Eos % (Auto) 0.3 3.9 Baso % (Auto) 0.2 0.3 Neut # (Auto) 3.6 16.7 H Lymph # (Auto) 1.9 1.0 [place] # (Auto) 0.5 0.8 Eos # (Auto) 0.0 0.8 Baso # (Auto) 0.0 0.1 Nucleated RBC % (a uto) 0 0 Total Counted 100 Segmented Neutroph ils 88 Lymphocytes (Man[place] l) 5 Eosinophils (Man[place]) 4 Absolute Eosinophi ls 0.8 H Metamyelocytes 2.0 Myelocytes 1.0 Nucleated RBCs # 0.0 0.0 Platelet Estimate Normal Sodium 138 Potassium 3.7 Chloride 98 Carbon Dioxide 27 Anion Gap 16.7 BUN 28 H Creatinine 1.0 GFR Calculation 74.3 L Glucose 208 H Calcium 9.7 Total Bilirubin 0.7 AST 24 ALT 28 Alkaline Phosphata se 67 Total Protein 7.5 Albumin 3.7 Globulin 3.8 Vitals: Last Vital Signs Temp 97.8 F 05/24/19 11:16 Pulse 66 05/24/19 15:36 Resp 18 05/24/19 15:36 BP 107/45 05/24/19 15:36 Pulse Ox 96 05/24/19 15:36 Discharge Plan Discharge Patient Disposition: Xfer SNF Condition: Stable Prescriptions: New furosemide 40 mg Tablet 40 mg PO BID@08,16 Qty: 60 RF: 0 nicotine 14 mg/24 hr Patch 24 Hour 1 patch transdermal DAILY Qty: 14 RF: 0 aspirin 81 mg Tablet,Delayed Release (Dr/Ec) 81 mg PO DAILY Qty: 30 RF: 0 lisinopril 2.5 mg Tablet 2.5 mg PO DAILY Qty: 30 RF: 0 doxycycline hyclate 100 mg capsule 100 mg PO BID 7 Days Qty: 14 RF: 0 albuterol sulfate 90 mcg/actuation HFA aerosol inhaler 1 inh INHALATION Q6H PRN (Reason: shortness of breath or wheezing) Qty: 18 RF: 0 Advair Diskus 250-50 mcg/dose blister with device 1 inh INHALATION BID Qty: 60 RF: 0 Continued Seroquel 25 mg Tablet 25 mg PO QPM RF: 0 amiodarone 200 mg Tablet 200 mg PO BID RF: 0 simvastatin 10 mg Tablet 10 mg PO QPM RF: 0 Plavix 75 mg Tablet 75 mg PO DAILY RF: 0 Complete Multivitamin Tablet 1 tab PO DAILY RF: 0 Discontinued sertraline 50 mg Tablet 50 mg PO DAILY RF: 0 Discharge Orders: Discharge Order (Routine); Ordered 05/24/19 Ordered By: Vimal Chino Other Ambulatory Orders: CT chest wo con [id number] (Routine) Timeframe: 1 Month Facility: [facility] - Location: Radiology [facility] Ordered By: Dustin Chan Referrals: [facility] [Outside] Alicia Hutchison MD [Physician] - 1 month Elisa Tejada MD [Physician] - 1 month Discharge Diet: Advance as tolerated Discharge Activity: Resume usual activity Patient Instructions: COPD, Viral Pneumonia (DC), Acute Respiratory Distress Syndrome (DC) Activity Restrictions/Additional Instructions: -Use doxycycline, Advair, albuterol as prescribed -Lasix and lisinopril as prescribed -Pulmonary in 1 month -Please follow-up with cardiology in 1 month -Repeat CT in 1 month Discharge Date/Time: 05/24/19 15:30 Discharge Attestations Time Spent in Discharge Care*: greater than 30 min Quality Metrics Clinical Quality Measures During this hospital stay, did patient experience: None Coding Level of Care Code 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 [employer] Diagnoses ARDS (adult respiratory distress syndrome) J80 Viral pneumonitis J12.9 Acute exacerbation of CHF (congestive heart failure) I50.9 Sepsis A41.9 Right lower lobe pneumonia J18.9 NSTEMI (non-ST elevated myocardial infarction) I21.4 Peripheral vascular disease I73.9 CAD (coronary artery disease) I25.10 Hypertension I10 History of ventricular tachycardia Z86.79 Acute respiratory failure with hypoxia J96.01 COPD (chronic obstructive pulmonary disease) J44.9 Tobacco abuse Z72.0 Essential hypertension I10 Transaminitis R74.0 Chronic kidney disease (CKD) stage G1/A1, glomerular filtration rate (GFR) equal to or greater than 90 mL/min/1.73 square meter and albuminuria creatinine ratio less than 30 mg/g N18.1 Ischemic cardiomyopathy I25.5 Glucose intolerance E74.39 Hypoalbuminemia E88.09 ICD (implantable cardioverter-defibrillator) in place Z95.810
== END 2019-05-24 15:30 | disposition skilled nursing facility (03) | DRG 871 ==
LOC: ER 17:46 → ICU 21:02 → CSU 05-19 14:01
PROVIDERS: Emergency Medicine; Internal Medicine; Student in an Organized Health Care Education/Training Program; Admitting Provider Student in an Organized Health Care Education/Training Program; Emergency Provider Family Medicine; Family Provider Nurse Practitioner Family; PCP Nurse Practitioner Family; Visit Provider Family Medicine
DX: A41.9 Sepsis, unspecified organism (principal); J96.91 Respiratory failure, unspecified with hypoxia; I21.4 Non-ST elevation (NSTEMI) myocardial infarction; J18.9 Pneumonia, unspecified organism; I50.23 Acute on chronic systolic (congestive) heart failure; M00.9 Pyogenic arthritis, unspecified; I25.5 Ischemic cardiomyopathy; I25.10 Atherosclerotic heart disease of native coronary artery without angina pectoris; I73.9 Peripheral vascular disease, unspecified; I11.0 Hypertensive heart disease with heart failure; Z86.79 Personal history of other diseases of the circulatory system; Z95.1 Presence of aortocoronary bypass graft; Z95.810 Presence of automatic (implantable) cardiac defibrillator; F17.210 Nicotine dependence, cigarettes, uncomplicated; E88.09 Other disorders of plasma-protein metabolism, not elsewhere classified; Z89.611 Acquired absence of right leg above knee; Z79.02 Long term (current) use of antithrombotics/antiplatelets; N18.1 Chronic kidney disease, stage 1
CPT/HCPCS: 12345; 36415; 36416; 36600; 51702; 71045; 71250; 71275; 73552; 74176; 80048; 80051; 80053; 80061; 80076; 80202; 80500; 82803; 82810; 82955; 82962; 83036; 83605; 83615; 83735; 83880; 83986; 84145; 84484; 85007; 85025; 86403; 87040; 87389; 87449; 87641; 87798; 87804; 93005; 93306; 93971; 94640; 94660; 94664; 96365; 96366; 96372; 96374; 96375; 97161; 97167; 97530; 97535; 99283; C9113; J0692; J0743; J1650; J1815; J1940; J1956; J2060; J2270; J2405; J2543; J2920; J3370; J3480; J7050; Q9967